=== PATIENT | female | born 1985 | race Caucasian/White ===

== ENCOUNTER 2016-09-22 17:13 | Emergency (ER) | payer MEDICARE, MEDICAID ==
[~2016-09-22] VITALS: Ht 152.4 cm; Wt 92.7 kg
[~2016-09-22 17:13] MED LIST: ALBU8.5H4 IH; ASCO100T11 PO; CHOL100045 PO; DICY10CA13 PO; GABA-500 PO; IMI100 PO; LEVO50TA39 PO; LIOT25TA4 PO; LORA1TAB PO; METO50TA3 PO; OMEP40CA36 PO; ONDA4TAB12 PO; OXYC1TAB24 PO; PRAM0.5T3 PO; RANI300C PO; SERT100T9 PO; TOPI-31 PO; VIT1TABL83 PO
[2016-09-22 17:20] VITALS: BP 115/86; PULSE 86; RESP 14; O2SAT 99
[2016-09-22 19:10] LABS: BASOPHILS % (AUTO) 0.1 % (0-3); EOSINOPHILS % (AUTO) 1.5 % (0-5); Mean Corpuscular Volume 85.7 fL (81-100); NEUTROPHILS % (AUTO) 68.9 % (40-74); Platelet Count 180 bil/L (150-400)
[2016-09-22 19:56] VITALS: BP 100/72; PULSE 85; RESP 16; O2SAT 97
--- NOTE | 2016-09-22 21:24 | ED.REPORT ---
HPI-Psychiatric Illness Date of Service Sep 22, 2016 ED Provider: Monique Najera MD 31-year-old female with past medical history of Asperger's presents to ED in care of mother secondary to SI with plan. Patient states she has been feeling depressed and guilty for quite some time secondary to a multitude of causes including sexual orientation, adult seemed television shows (game of Crohn's), cursing. Patient is concerned that her mother who is quite latter-day will be very disapproving of these behaviors. This has caused her to feel guilt and shame culminating tonight in a desire to harm herself after watching the news with depressing events. Patient's plan is to take a knife and cut herself she did not specify where. Patient denies alcohol or drug use (U-tox positive for methamphetamine). Patient has no complaints of pain with the exception of chronic abdominal pain secondary to multiple abdominal surgeries. Nursing Notes Stated Complaint: SUICIDAL IDEATION Chief Complaint: Psychiatric Complaint Nursing Notes Reviewed: Yes Allergies: Coded Allergies: Aminoglycosides (Verified Allergy, Severe, BURNING SKIN, 09/22/16) Replaces BACITRACIN/NE Haloperidol Lactate (Verified Allergy, Severe, 09/22/16) Uncontrolled movements, "disconnected from body" bupropion (Verified Allergy, Severe, Agitation, 09/22/16) haloperidol (Verified Allergy, Severe, 09/22/16) Uncontrolled movements, "disconnected from body" metoclopramide HCl (Verified Allergy, Severe, 09/22/16) Shakes adhesive tape (Verified Allergy, Unknown, UNKNOWN, 09/22/16) methylprednisolone (Verified Allergy, Unknown, TROTTER SKIN, 09/22/16) neomycin (Verified Allergy, Unknown, MAKES HEALING WORSE, 09/22/16) Penicillins (Verified Adverse Reaction, Severe, Nausea,Vomiting,Diarrhea, 09/22/16) Potassium Clavulanate (Verified Adverse Reaction, Severe, PROJECTILE VOMITING, 09/22/16) amoxicillin trihydrate (Verified Adverse Reaction, Severe, PROJECTILE VOMITING, 09/22/16) Uncoded Allergies: PERTUSSIS (Allergy, Unknown, 10/17/14) Scheduled Ascorbic Acid (Vitamin C) 100 Mg Tablet 100 MG PO DAILY Cholecalciferol (Vitamin D3) (Vitamin D) 1,000 Unit Capsule 1,000 UNIT PO DAILY Gabapentin (Gabapentin) 100 Mg Capsule 300 MG PO DAILY Levothyroxine (Levoxyl) 50 Mcg Tablet 50 MCG PO DAILY Liothyronine Sodium (Cytomel) 25 Mcg Tablet 12.5 MCG PO DAILY Metoprolol Tartrate (Metoprolol Tartrate) 50 Mg Tablet 50 MG PO BID Omeprazole (Omeprazole) 40 Mg Capsule.dr 40 MG PO DAILY Ondansetron ODT (Ondansetron ODT) 4 Mg Tab.rapdis 4 MG PO Q8 Pramipexole Dihydrochloride (Mirapex) 0.5 Mg Tablet 0.5 MG PO 2-3 HR BEFORE SLEEP Ranitidine (Ranitidine) 300 Mg Capsule 300 MG PO DAILY Sertraline HCl (Sertraline) 100 Mg Tablet 200 MG PO DAILY Topiramate (Topiramate) 100 Mg Tablet 50 MG PO BID Vit B Comp/C/FA/Iron/Vit E (Vitamin B Complex Tablet) 1 Each Tablet 1 EACH PO DAILY Scheduled PRN Albuterol HFA (Albuterol HFA) 8.5 Gm Hfa.aer.ad 2 PUFF IH Q4 PRN PRN For Shortness of Breath Dicyclomine (Dicyclomine) 10 Mg Capsule 10 MG PO DAILY PRN PRN For GI Cramps Lorazepam (Lorazepam) 1 Mg Tablet 1-2 MG PO Q6H PRN PRN Muscle twitching Sumatriptan (Imitrex) 100 Mg Tablet 100 MG PO PRN migraines RPEAT AFTER 2 HR PRN oxyCODONE-Acetaminophen 5-325 mg (oxyCODONE-Acetaminophen 5-325 mg) 1 Each Tablet 1-2 TAB PO Q6H PRN PRN For Pain General Time Seen by MD: 17:32 Chief Complaint Suicidal ideation Risk-Psychiatric Illness Suicide Risk Stratification Suicide Risk Factors - Adult: : Substance abuse RF Statements: Risk factors reviewed Past Medical History Past Medical History Asthma (exercise-induced) Hx of tuberculosis (treated years ago) GERD - disposed EGD 08/01/2013, biopsy negative, findings of mild antral Gastritis Hiatal hernia Anxiety Depression (history of suicidal ideation and self-mutilation, bipolar, in past) Asperger's syndrome Hypothyroid Autism Anxiety Medication noncompliance Gastroparesis Allergic rhinitis Reports: Cancer, GERD Reports: Depression, Migraines Past Surgical History Benign liver adenoma removal EGD 08/01/2013 with mild antral gastritis cyst removal 3 anal fistulas 9 abscesses knee arthroscopy wrist cyst Reports: Cholecystectomy, Hysterectomy Family History Breast and ovarian cancer Smoking History Never Smoker Social History Alcohol Use: Denies alcohol use Drug Use: Denies drug use Other Social History: Lives with parents, Local resident Ambulatory Status Independent Review of Systems REVIEW OF SYSTEMS Constitutional: Denies Chills, Fever, Weakness Eyes: Denies Blurred Vision, Vision Changes ENT: Denies Dysphagia, Ear Pain, Hoarseness, Nasal Congestion, Nose Discharge, Throat Pain Neck: Denies Mass, Pain, Swelling Cardiovascular: Denies Chest Pain, Edema, Irregular Heart Rate, Palpitations Respiratory: Denies Cough, Shortness of Breath, Wheezing Gastrointestinal: Denies Black tarry stools, Bright red blood in stool, Change in Appetite, Constipation, Diarrhea, Nausea, Vomiting. Endorses chronic abdominal pain and chronic heartburn. Genitourinary: Denies No burning or pain with urination Neurological: Denies Change in LOC, Change in Speech, Confusion, Difficulty Walking, Dizziness, Double Vision, Localized Weakness, Numbness, Seizures, Somnolence, Tremors, Vertigo Psychologic: Endorses Agitation, Anxiety, Depression, Insomnia, Suicidal Thoughts Physical Exam General: Obese female in mild distress, well-developed, well-nourished, emotionally distraught and crying at time of interview. HEENT: Normocephalic, atraumatic. External ears without defect. Pupils equal, round, and reactive to light and accommodation. Anicteric sclerae, moist conjunctivae, and no lid lag. Oropharynx free of erythema and cobble stoning with moist mucosa, edentulous. Neck: Supple with full range of motion. No jugular venous distension. Cardiovascular: Regular rate and rhythm with no murmurs, rubs, or gallops appreciated Pulmonary: Clear to auscultation bilaterally with no crackles, wheezes, or rhonchi. Normal respiratory effort with no use of accessory muscles. Abdomen: Bowel tones present. Multiple surgical scars, well-healed. Soft, nontender to palpation, nondistended. Extremities: No clubbing, cyanosis, edema, or lymphadenopathy appreciated. Skin: Normal temperature, turgor, and texture; no rash, ulcers, or subcutaneous nodules appreciated. Neurological: Cranial nerves grossly intact. Normal muscle strength, tone, and bulk. Reflexes, coordination, and sensory function within normal limits. No known gait impairment. Psychiatric: Distant and depressed mood and affect. Alert and oriented to person, place, and time. Initial Vital Signs Vital Signs (First) Date Time Temp Pulse Resp B/P Pulse Ox O2 Delivery O2 Flow Rate FiO2 09/22/16 17:20 37.2 86 14 115/86 99 Room Air Initial VS: Reviewed Interpretation & Diagnostics Lab Results Interpretation Result Diagram: 09/22/16189909/22/161899 Test 09/22/16 19:00 09/22/16 19:40 09/23/16 06:55 White Blood Count 7.8th/mm3 (3.8-10.1) Red Blood Count 4.77mil/mm3 (3.90-5.20) Hemoglobin 14.3g/dL (12.0-15.6) Hematocrit 40.9% (35.0-46.0) Mean Corpuscular Volume 85.7fL (81-100) Mean Corpuscular Hemoglobin 30.0pg (27.0-35.0) Mean Corpuscular Hemoglobin Concent 35.0% (32.0-37.0) Red Cell Distribution Width 13.3% (12.3-15.4) Platelet Count 180bil/L (150-400) Neutrophils (%) (Auto) 68.9% (40-74) Lymphocytes (%) (Auto) 23.2% (14-46) Monocytes (%) (Auto) 6.0% (4-12) Eosinophils (%) (Auto) 1.5% (0-5) Basophils (%) (Auto) 0.1% (0-3) Sodium Level 137mEq/L (134-144) Potassium Level 4.2mEq/L (3.5-5.2) Chloride Level 104mEq/L (97-108) Carbon Dioxide Level 20mmol/L (18-29) Blood Urea Nitrogen 9mg/dL (6-20) Creatinine 0.63mg/dL (0.57-1.00) Estimat Glomerular Filtration Rate 157mL/min (>59) Glucose Level 92mg/dL (60-99) Calcium Level 9.1mg/dL (8.5-10.1) Total Bilirubin 0.3mg/dL (0.0-1.2) Aspartate Amino Transf (AST/SGOT) 19U/L (0-50) Alanine Aminotransferase (ALT/SGPT) 21U/L (0-32) Alkaline Phosphatase 181U/L (25-150) Total Protein 7.1g/dL (6.4-8.4) Albumin 3.9g/dL (3.4-5.0) Thyroid Stimulating Hormone (TSH) 0.805uIU/mL (0.450-4.500) Hold Urine Received (Received) Urine Opiates Screen Negative Urine Methadone Screen Negative Urine Barbiturates Screen Negative Urine Amphetamines Screen Positive Urine Benzodiazepines Screen Negative Urine Cocaine Metabolite Screen Negative Urine Cannabinoids Screen Negative Re-Eval/Medical Decision Med Decision/Clinical Course Assumed care at midnight from Dr. Sanders. Patient quiet overnight. Lab evaluation of our urine tox screen showing amphetamine and methamphetamine shows no methamphetamine and no amphetamine. Repeat this morning of a bedside tox again shows positive benzos which was prescribed here, but methamphetamine, oxycodone, and phencyclidine. A lab verification of that tox screen is now pending. She denies using methamphetamine and does not appear to be a methamphetamine user. Plan at this point to summon consultative help via the DCR, as she has no methamphetamine by the actual lab determination, and in any case has had sufficient time to metabolize off any intoxicants. Signed out at [address] Najera On-call social service director states patient will have to remain in ED overnight until can be evaluated in the a.m. secondary to work overload. Patient is a voluntary admit overnight. During interview patient did deny drug or alcohol use, U tox was positive for methamphetamine. Social work states if during the evening after patient has sobered from the methamphetamine ingestion she no longer feels suicidal ideations she may be discharged to home attributing the SI to methamphetamine use. Pt reevaluated at approximately 2300 and still expressed SI with intent. CMP unremarkable (mildly elevated alkaline phosphatase), CMP unremarkable. Pt care transferred to [facility] ED physician Dr. Parada at [id number] Re-Evaluation/Progress : Time of Eval: 08:31 Re-Evaluation/Progress Note: Dr Najera Care assumed Urine tox screens with confusing and inconsistent picture. 3/4 screens do show amphetamine. One shows oxycodone. One with PCP. Will wait for TEXTILE ENGINEER eval to help with dispo later this am Discharge & Departure Shift Change Sign-Out Patient Care Transferred: Yes Laboratory Evaluation: Lab evaluation discussed Response to Therapy: Improved Impression: Primary Impression: Depression Additional Impression: Acute situational disturbance )( Condition at Discharge: No suicidal ideation (contracts for safety if able to get apt with [facility] provider tomorrow) Disposition: Home Additional Instructions: You have an appointment at 9 AM tomorrow at [facility]. Your mom has agreed to help you stay safe over the evening I hope you feel better in the next few days Referrals: Leonid Vogel MD (PCP) Attending Statement I saw the patient with resident Dr. Anaya and agree with plan as above. In brief, patient is a history of Asperger's presenting complaining of wanting to hurt herself with pills are without knife. She denies she may do this. Chest positive for methamphetamines in her urine. She will need to be evaluated by mental health in the morning. Signed out to Dr. Brain Parada. DUNG ANAYA DO Sep 22, 2016 18:23 Paolo Sanders MD Sep 23, 2016 00:23 Dalton Parada MD Sep 23, 2016 06:28 Monique Najera MD Sep 23, 2016 08:33
[2016-09-22 22:51] VITALS: BP 97/64; PULSE 80; RESP 14; O2SAT 98
[2016-09-23] MEDS ORDERED: LORazepam 1 mg Tablet PO ONE (00:15)
[2016-09-23 06:12] VITALS: BP 106/87; PULSE 102; RESP 14; O2SAT 97
[2016-09-23 12:11] VITALS: BP 94/64; PULSE 108; O2SAT 95
--- NOTE | 2016-09-23 14:33 | NUR ---
Mental Health Evaluation Trista Bertrand 09/23/2016 Reason for Hospital Visit: Suicidal Ideation Precipitating Problem:The Pt presented to the ED in accompany of her mother, SW met with the Pt at bedside for mental health evaluation. The Pt stated that she has felt depressed "all my life" and has been feeling progressively worse during the last month with a peak 2-3 days ago. No specific trigger could be identified in relation to the 2-3 day timeframe. The Pt reported that she began feeling suicidal yesterday afternoon for the first time after watching the news. She stated that she has multiple concerns in her life due to medical issues, stress, and her current living situation. According to the Pt's mother, the Pt was diagnosed with Asperger's as a child and has lived on her own since she was about 20, although her mother and aunt have taken on roles for daily care assistance. The Pt stated that she feels guilt and pressure from family over how she lives, which includes her movie selection and sexual orientation (which is unknown to her family). She also reported that she has bad images and thoughts that continuously run through her head, such as those related to her being a bad person and being worse than a murderer. The Pt stated that her sleep and appetite has gotten worse over the last month and that she has lost about 6-7 pounds during this time. She reports that she feels herself feeling isolated and withdrawn and has no will to get out of bed. Mental Status: The Pt is a 63 y/o female. The Pt is A/O x3. During the interview, the Pt was cooperative and appropriate but tearful at times. She was dressed in her hospital gown and was unkempt in appearance. Pt made appropriate eye contact and her speech was normal in rate, volume, and tone. The Pt's affect was congruent and her mood was depressed. She denies current SI, HI or AV H at this time. Psychiatric Hx: [place] MIS check completed. FLORINDA reported that the Pt has been enrolled in [facility] counseling services since April 2015. FLORINDA also reported that the Pt was seen by a [facility] in 2004, outpatient mental health services were recommended. STANTONHussein has no record of previous hospitalizations. The Pt's current counselor at [facility] is Shane and she sees Ester for medication services. She is currently prescribed Pristiq for depression and Lorazepam for sleep concerns. The Pt reported a family history of depression and with no family history of completed suicides. She reports that this is the first time she has experienced SI with the exception of a past experience which was reported by the Pt to be associated with a medication side effect. CD Hx: None reported, although BAL was 0 and UTOX was positive for methamphetamines and phencyclidine. Legal Hx: None reported. Diagnosis: F33.2 Major Depressive Disorder, recurrent, severe Disposition/Plan: The Pt is not currently endorsing SI, HI or AV H. She is not an imminent risk to herself or others nor is gravely disabled by her mental health concerns at this time. The Pt is currently enrolled with counseling and psychiatric services at [facility]. She is seeking urgent services to address her suicidal ideation concerns. SW conferred with ED MD and GEAR HOBBER OPERATORLaura Gerber and the decision was made to discharge the Pt home today in the care of her mother with an urgent next day appointment at [facility]. Pt feels safe to return home and agrees to return to the ED if she feels unable to remain safe. SAIMA Corral Member [employer] SAIMA Joshi, AAC
[2016-12-11] MEDS ORDERED: MULT-1018 PO (08:55)
[2016-12-11] MEDS ORDERED: LORA0.5T PO (08:55)
[2016-12-11] MEDS ORDERED: DESV50TA PO (08:55)
[2016-12-11] MEDS ORDERED: OXYC1TAB24 PO (08:55)
[2016-12-11] MEDS ORDERED: TOPI50TA88 PO (08:55)
[2016-12-11] MEDS ORDERED: ALBU8.5H2 INHALATION (08:55)
== END 2016-09-23 12:20 | disposition home or self-care (01) ==
LOC: SED 17:13
DX: F43.21 Adjustment disorder with depressed mood (principal); K21.9 Gastro-esophageal reflux disease without esophagitis; F84.5 Asperger's syndrome; F84.0 Autistic disorder; J45.990 Exercise induced bronchospasm; Z79.51 Long term (current) use of inhaled steroids; Z79.01 Long term (current) use of anticoagulants; Z79.899 Other long term (current) drug therapy; Z88.0 Allergy status to penicillin; Z88.1 Allergy status to other antibiotic agents
CPT/HCPCS: 36415; 80053; 81002; 81025; 82075; 84443; 85025; 99285; G0480

== ENCOUNTER 2016-09-25 17:29 | Inpatient (IN) | payer MEDICARE, MEDICAID ==
[~2016-09-25] VITALS: Ht 152.4 cm; Wt 90.0 kg
[2016-09-25 17:31] VITALS: BP 115/90; PULSE 92; RESP 16; O2SAT 98
--- NOTE | 2016-09-25 19:14 | ED.REPORT ---
HPI-Psychiatric Illness Date of Service Sep 25, 2016 ED Provider: Darryl Kumar MD Pt is a 31 y.o. female with an extensive medical hx including Asperger's, anxiety, depression, bipolar disorder, and thyroid disease who presents to the ED c/o suicidal ideation. Pt was seen in the ED several days ago for SI and she was to follow-up with a counselor. Pt reports follow-up but states that her SI has been getting worse over the past 3 days. PT is currently looking for admission for her SI.Pt reports currently complying with her Pristiq and Lorazepam, she has hx of non-compliance. Nursing Notes Stated Complaint: SUICIDAL Chief Complaint: Psychiatric Complaint Nursing Notes Reviewed: Yes Allergies: Coded Allergies: Aminoglycosides (Verified Allergy, Severe, BURNING SKIN, 09/22/16) Replaces BACITRACIN/NE Haloperidol Lactate (Verified Allergy, Severe, 09/22/16) Uncontrolled movements, "disconnected from body" bupropion (Verified Allergy, Severe, Agitation, 09/22/16) haloperidol (Verified Allergy, Severe, 09/22/16) Uncontrolled movements, "disconnected from body" metoclopramide HCl (Verified Allergy, Severe, 09/22/16) Shakes adhesive tape (Verified Allergy, Unknown, UNKNOWN, 09/22/16) methylprednisolone (Verified Allergy, Unknown, TROTTER SKIN, 09/22/16) neomycin (Verified Allergy, Unknown, MAKES HEALING WORSE, 09/22/16) Penicillins (Verified Adverse Reaction, Severe, Nausea,Vomiting,Diarrhea, 09/22/16) Potassium Clavulanate (Verified Adverse Reaction, Severe, PROJECTILE VOMITING, 09/22/16) amoxicillin trihydrate (Verified Adverse Reaction, Severe, PROJECTILE VOMITING, 09/22/16) Uncoded Allergies: PERTUSSIS (Allergy, Unknown, 10/17/14) Scheduled Ascorbic Acid (Vitamin C) 100 Mg Tablet 100 MG PO DAILY Cholecalciferol (Vitamin D3) (Vitamin D) 1,000 Unit Capsule 1,000 UNIT PO DAILY Gabapentin (Gabapentin) 100 Mg Capsule 300 MG PO DAILY Levothyroxine (Levoxyl) 50 Mcg Tablet 50 MCG PO DAILY Liothyronine Sodium (Cytomel) 25 Mcg Tablet 12.5 MCG PO DAILY Metoprolol Tartrate (Metoprolol Tartrate) 50 Mg Tablet 50 MG PO BID Omeprazole (Omeprazole) 40 Mg Capsule.dr 40 MG PO DAILY Ondansetron ODT (Ondansetron ODT) 4 Mg Tab.rapdis 4 MG PO Q8 Pramipexole Dihydrochloride (Mirapex) 0.5 Mg Tablet 0.5 MG PO 2-3 HR BEFORE SLEEP Ranitidine (Ranitidine) 300 Mg Capsule 300 MG PO DAILY Sertraline HCl (Sertraline) 100 Mg Tablet 200 MG PO DAILY Topiramate (Topiramate) 100 Mg Tablet 50 MG PO BID Vit B Comp/C/FA/Iron/Vit E (Vitamin B Complex Tablet) 1 Each Tablet 1 EACH PO DAILY Scheduled PRN Albuterol HFA (Albuterol HFA) 8.5 Gm Hfa.aer.ad 2 PUFF IH Q4 PRN PRN For Shortness of Breath Dicyclomine (Dicyclomine) 10 Mg Capsule 10 MG PO DAILY PRN PRN For GI Cramps Lorazepam (Lorazepam) 1 Mg Tablet 1-2 MG PO Q6H PRN PRN Muscle twitching Sumatriptan (Imitrex) 100 Mg Tablet 100 MG PO PRN migraines RPEAT AFTER 2 HR PRN oxyCODONE-Acetaminophen 5-325 mg (oxyCODONE-Acetaminophen 5-325 mg) 1 Each Tablet 1-2 TAB PO Q6H PRN PRN For Pain General Time Seen by MD: 19:13 Chief Complaint Suicidal ideation Hx Obtained From: Patient Arrived By: Walk-in Onset Occurred: 3 days ago Progression Since Onset: Gradually worsening Severity: Current: No pain currently Recent Healthcare: Recent doctor visit Risk-Psychiatric Illness Suicide Risk Stratification RF Statements: Risk factors reviewed Past Medical History Past Medical History Asthma (exercise-induced) Hx of tuberculosis (treated years ago) GERD - disposed EGD 08/01/2013, biopsy negative, findings of mild antral Gastritis Hiatal hernia Anxiety Depression (history of suicidal ideation and self-mutilation, bipolar, in past) Asperger's syndrome Hypothyroid Autism Anxiety Medication noncompliance Gastroparesis Allergic rhinitis Reports: Cancer, GERD Reports: Depression, Migraines Past Surgical History Benign liver adenoma removal EGD 08/01/2013 with mild antral gastritis cyst removal 3 anal fistulas 9 abscesses knee arthroscopy wrist cyst Reports: Cholecystectomy, Hysterectomy Family History Breast and ovarian cancer Smoking History Never Smoker Social History Alcohol Use: Denies alcohol use Drug Use: Denies drug use Other Social History: Lives with parents, Local resident Ambulatory Status Independent Review of Systems Psychiatric: Reports: Suicidal ideation Complete sys rev & neg: except as marked. Physical Exam Initial Vital Signs Vital Signs (First) Date Time Temp Pulse Resp B/P Pulse Ox O2 Delivery O2 Flow Rate FiO2 09/25/16 17:31 36.9 92 16 115/90 98 Room Air Initial VS: Reviewed Respiratory: Breath sounds normal, No respiratory distress Cardiovascular: Regular rate & rhythm, Intact distal pulses Extremities: Vascular intact, Neuro intact Skin: Warm, Dry, No cyanosis General/Constitutional: Awake, Alert Behavior: Positive: Tearful Not responding to external stimuli Neurologic: Oriented X3, Speech NL Psychiatric: Not homicidal Abnormal Mood/Affect: Positive: Flat affect Abnormal Thinking / Perception: Positive: Suicidal, no plan Head / Eyes: Atraumatic, Normocephalic Head / Scalp Abnl: Negative: Scalp deformity present ENT: Atraumatic, Airway patent Mouth: Positive: Mucous membranes dry Abdomen: Atraumatic, Soft, No distention Well healed abdominal surgical scar Interpretation & Diagnostics Lab Results Interpretation Result Diagram: 09/25/16203409/25/162034 Test 09/25/16 19:19 09/25/16 20:35 Hold Urine Received (Received) White Blood Count 8.0th/mm3 (3.8-10.1) Red Blood Count 4.62mil/mm3 (3.90-5.20) Hemoglobin 13.8g/dL (12.0-15.6) Hematocrit 39.6% (35.0-46.0) Mean Corpuscular Volume 85.7fL (81-100) Mean Corpuscular Hemoglobin 29.9pg (27.0-35.0) Mean Corpuscular Hemoglobin Concent 34.8% (32.0-37.0) Red Cell Distribution Width 13.4% (12.3-15.4) Platelet Count 185bil/L (150-400) Neutrophils (%) (Auto) 65.1% (40-74) Lymphocytes (%) (Auto) 25.7% (14-46) Monocytes (%) (Auto) 7.5% (4-12) Eosinophils (%) (Auto) 1.3% (0-5) Basophils (%) (Auto) 0.3% (0-3) Sodium Level 140mEq/L (134-144) Potassium Level 3.9mEq/L (3.5-5.2) Chloride Level 104mEq/L (97-108) Carbon Dioxide Level 21mmol/L (18-29) Blood Urea Nitrogen 9mg/dL (6-20) Creatinine 0.74mg/dL (0.57-1.00) Estimat Glomerular Filtration Rate 130mL/min (>59) Glucose Level 92mg/dL (60-99) Calcium Level 9.0mg/dL (8.5-10.1) Total Bilirubin 0.3mg/dL (0.0-1.2) Aspartate Amino Transf (AST/SGOT) 20U/L (0-50) Alanine Aminotransferase (ALT/SGPT) 23U/L (0-32) Alkaline Phosphatase 176U/L (25-150) Total Protein 7.0g/dL (6.4-8.4) Albumin 4.0g/dL (3.4-5.0) Thyroid Stimulating Hormone (TSH) 0.620uIU/mL (0.450-4.500) Hold Swayer Top Tube Received (Received) Re-Eval/Medical Decision Med Decision/Clinical Course Pt is a 31 y.o. female with an extensive medical hx including Asperger's, anxiety, depression, bipolar disorder, and thyroid disease who presents to the ED c/o suicidal ideation. The patient is afebrile and hemodynamically stable. There is no evidence of head trauma. CBC, CMP and TSH are within normal limits. Blood alcohol is negative, urine drug screen is negative. Patient reports multiple social stressors and isolation leading to depression and suicidal ideation. She requests voluntary admission. I see no evidence of an organic cause of her symptoms. The patient was seen and evaluated by social contact worker who felt that she was appropriate for voluntary admission. Patient was discussed with the admitting psychiatrist accepted for further management. Patient was transferred stable condition. Source of Hx: Old records Counseled Regarding: Need for admission Discharge & Departure Impression: Primary Impression: Suicidal ideation Additional Impressions: Depression Depression Type: unspecified Qualified Code: F32.9 - Major depressive disorder, single episode, unspecified History of thyroid disease Disposition: ADMITTED TO HOSPITAL Discharge Condition All VS Reviewed: Yes Condition: Stable Referrals: Leonid Vogel MD (PCP) Scribe Attestation Portions of this note were transcribed by Duy Shafer. I, Dr. Kumar personally performed the history, physical exam and medical decision-making; I reviewed and confirmed the accuracy of the information in the transcribed note. Signed by: Connie Mckeon, 09/25/2016 and 2203. copies to: Leonid Vogel MD, Beck O MD Sep 25, 2016 19:14 DUY SHAFER Sep 25, 2016 20:12
[2016-09-25 20:51] LABS: BASOPHILS % (AUTO) 0.3 % (0-3); EOSINOPHILS % (AUTO) 1.3 % (0-5); MONOCYTES % (AUTO) 7.5 % (4-12); Mean Corpuscular Hemoglobin 29.9 pg (27.0-35.0); Mean Corpuscular Volume 85.7 fL (81-100); NEUTROPHILS % (AUTO) 65.1 % (40-74); Platelet Count 185 bil/L (150-400)
[2016-09-25] MEDS ORDERED: Alum-Mag Hydrox-Simeth 30 mL Suspension PO PRN (23:00)
[2016-09-25] MEDS ORDERED: Albuterol HFA 60 Puff 8 Gm Inhaler INHALATION PRN (23:00)
[2016-09-25] MEDS ORDERED: Benzocaine-Menthol Lozenge 2/Pkg PO PRN (23:00)
[2016-09-25] MEDS ORDERED: Magnesium Hydroxide 10 mL Oral Concentration PO PRN (23:00)
[2016-09-26] MEDS: LORazepam 1 mg Tablet PO PRN ×2 (00:08→21:33)
--- NOTE | 2016-09-26 01:52 | NUR ---
Admission note- Patient arrived on unit at 2130 this shift. 31 year old female, voluntary patient with history of ASD and depression. Presented in ED with continued SI. States, "It's gotten worse". Patient states family member's declining health is a stressor for her. Patient states she worries about her caregivers' declining health and worries for who will care for her in their absence, as she doesn't "even drive" herself. Previous admit 09/23/15. Isolating, poor sleep, reports losing over 10 pounds recently. Reports tried outpatient management without success. No history previous suicide attempts; no access to firearms, homicidal ideations or perceptual disturbances. Addendum: 09/26/16 at 0456 by IDANIA SPARROW RN ARRIVAL TIME- CORRECTION TIME FOR ADMIT 0135 not 0130
--- NOTE | 2016-09-26 04:57 | NUR ---
sleep pt has not slept since arriving at 0135, Ambien given at 0350. Pt has been up walking to milieu and then room drinking coffee.
--- NOTE | 2016-09-26 06:39 | NUR ---
Pt arrived at 2130. Signed papers with no problems. Presented as tearful and anxious. Did not stay out on unit went right to room. Asleep at 2300. Pt observed every 15 minutes as ordered.
[2016-09-26] MEDS ORDERED: RANI300T4 (06:59)
[2016-09-26] MEDS ORDERED: DESV50TA (06:59)
[2016-09-26] MEDS ORDERED: LEVO50TA6 (06:59)
[2016-09-26] MEDS: Pantoprazole 40 mg ER24 Tablet PO SCH (07:46)
[2016-09-26] MEDS ORDERED: Influenza (Adult) Vaccine 0.5 mL Syringe IM ONE (08:30)
--- NOTE | 2016-09-26 10:13 | NUR ---
day shift nursing note-Anxiety/Depression/SI/Socialization/Nutrition S/O-"I had a lot of anxiety/depression and SI last night." "I am depressed this morning but not anxious or suicidal." Pt. stated she needed her med for RLS last night. She declined her breakfast and wanted to sleep in this morning. She has direct eye contract and is cooperative and pleasant with staff. She denied having any nightmares last night. A-Depressed. Seeking help. P-Monitor for safety per protocol. Assess efficacy of meds to decrease anxiety/depression. Encourage use of better coping skills to deal with anxieties. Keep to regular routine to ensure increased trust.
[2016-09-26] MEDS: LORazepam 0.5 mg Tablet PO SCH (11:57)
[2016-09-26] MEDS ORDERED: oxyCODONE-Acetamin 5-325 mg Tablet PO PRN (13:35)
[2016-09-26] MEDS ORDERED: Albuterol HFA 60 Puff 8 Gm Inhaler INHALATION PRN (13:35)
[2016-09-26] MEDS: ASCORBIC ACID 100 MG PO SCH (13:35)
[2016-09-26] MEDS ORDERED: _LORazepam 1 mg Tablet PO PRN (13:35)
[2016-09-26] MEDS ORDERED: Non-Formulary Medication (Ranitidine 300 MG) PO SCH (13:35)
[2016-09-26 13:38] VITALS: BP 100/64; PULSE 93; RESP 16
[2016-09-26] MEDS ORDERED: Albuterol 2.5 mg/3 mL Inhalation Solution NEB PRN (13:55)
[2016-09-26] MEDS ORDERED: LORazepam 1 mg Tablet PO PRN (14:00)
--- NOTE | 2016-09-26 15:20 | HP ---
[address] [address] HISTORY AND PHYSICAL PATIENT: NATALIE MILLER : 1985 MR#: [id number] ADMIT: 09/25/2016 JOB ID: [id number] IDENTIFICATION OF PATIENT: The patient is a 31-year-old female who reportedly was admitted on a voluntary basis through the emergency department with evidence of significant increasing suicidal ideation, depression, with a plan of taking an overdose of medications. CHIEF COMPLAINT: "I am really worried about my mom and my aunt." This per patient report. HISTORY OF THE PRESENT ILLNESS: The patient is a 31-year-old female who reportedly has a previous history of treatment for depression through [facility] and is currently connected with both a nurse practitioner and therapist at that site. She most recently was seen by Shane, a therapist which was newly assigned, and her previous nurse practitioner, Ester. She reportedly states that she has felt increasingly depressed, hopeless, and worried due to significant factors of her mother's own physical health and her aunt as well. She indicates that her mother is her primary care provider due to the fact that she suffers from Asperger's syndrome and is currently on disability. She indicates that the mother continues to work part-time but is struggling with her own physical limitations. She indicates that her aunt evidently recently had neck surgery and she states that she is very worried that if something happens to either one of them, who would take care of her. She reports that she cannot get things out of her head and that she often puts herself down. She indicates that she hears voices internally telling her that she is a bad person and that she will never live up to what her parents expect of her. In reviewing additional history, as noted above the patient is currently maintained through [facility] and is evidently prescribed agents including Pristiq 50 mg daily, Ativan 1-2 mg q. 6 p.r.n., Zoloft 200 mg daily. She indicated that she is also on multiple supplements as well. Other medical history was reviewed through the ER report and I agree with the findings. PAST PSYCHIATRIC HISTORY: Substantial for the above information. SOCIAL HISTORY: The patient currently lives in an apartment dwelling. She indicates that she does have routine contact with her mother and aunt. She indicates that she does not have current employment. She has very limited access to friends per report. She denies any alcohol or substance abuse issues. Trauma history was not reviewed. FAMILY HISTORY: Unknown. DEVELOPMENTAL HISTORY: She reportedly graduated from high school with a GED from [employer]. No collegiate involvement. MENTAL STATUS EXAMINATION: She was cooperative, polite. She was younger than age in presentation and demeanor. Her speech was of normal tone, frequency, and volume. Her mood was depressed. Her affect is anxious. Her thought process shows no evidence of racing thoughts, flight of ideas, loose or disconnected thinking. Thought content: She denied any evidence of current suicidal, homicidal ideation. No evidence of paranoia. No evidence of hallucinations. She was alert, oriented to time, place, situation. Her attention and concentration intact. 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 Insight and judgment are fair to poor. IMPRESSION: Amonate I: 1. Asperger syndrome. 2. Major depressive disorder, recurrent type, nonpsychotic. 3. Generalized anxiety disorder. Amonate II: Deferred. Amonate III: History of chronic pain. Amonate IV: Stressors are noted for transition of life. Amonate V: Global Assessment of Functioning of current 40. PLAN: 1. Recommendations for continuation of all medications from outpatient sector. No revisions to be made. 2. Recommendations for collaboration of information from [facility] with releases to be signed.
[2016-09-26] MEDS ORDERED: _Ondansetron ODT 4 mg Tablet PO SCH (16:30)
--- NOTE | 2016-09-26 17:05 | NUR ---
Uppers Edge Burnisher./ c.m. S.:"I slept most of the morning... I can't live up to my parents expectations..." O.: met with pt. and doctor for initial interview. Pt. is vol. This is her 2nd psych. hospitalization. She was hospitalized 1st time at age 12 at [facility] in [place]. She is well connected with medical and mental health services. She lives alone but she has daily support from her family. She was depressed all her life. She had multiple surgeries over the last few years. She is unemployed, disabled. She said that her mother was very critical, judgemental and strict all her life. "She is a very forceful person. She yells a lot." Pt. complained about racing thoughts and obsessive negative thoughts. She was upset about not being able to "live up" to her parents expectations. She was trying to avoid activities that would cause her mom disapproval. She was concerned about her mom and her aunt health decline. "What will I do if something happen to them?" She denied SI/HI, denied AH/VH or paranoid/delusional thoughts. She couldn't rate her depression or anxiety. She spent most of the time in her room. A.: pt. is cooperative, quiet, isolative, childlike. P.: monitor behavior, engage pt. in the unit activities; follow care plan.
--- NOTE | 2016-09-26 18:04 | NUR ---
Observations 0700 to 1900 Pt maintained behavioral control throughout the shift. Pt is flat, isolative. Pt isolated in room for entire day until 1700, except fo remerging briefly for lunch. Pt did not seek interaction with peers or staff, but is cooperative when approached. While in room pt lies on bed the entire time, but did not seem to sleep at all. After dinner pt began to quietly sit in TV area. Pt ate no breakfast and 25% of both lunch and dinner. Pt was observed every 15 minutes as ordered.
[2016-09-26 21:40] VITALS: BP 107/68; PULSE 92; RESP 16
--- NOTE | 2016-09-26 21:41 | NUR ---
Nurses PRN Patient received Ativan 1mg for anxiety and sleep,nights to assess response.
--- NOTE | 2016-09-27 05:55 | NUR ---
Pt out on unit some, mostly isolated to room after shower. Asleep at 5. Pt observed every 15 minutes as ordered.
--- NOTE | 2016-09-27 07:00 | NUR ---
Nursing note NOC Patient slept most of shift. Keeps to herself in her room. Pleasant when in milieu.
[2016-09-27] MEDS: Pantoprazole 40 mg ER24 Tablet PO SCH (08:03)
[2016-09-27] MEDS: ASCORBIC ACID 100 MG PO SCH (08:30)
[2016-09-27 08:45] VITALS: BP 100/59; PULSE 83; RESP 16
[2016-09-27] MEDS: LORazepam 0.5 mg Tablet PO SCH (11:47)
--- NOTE | 2016-09-27 13:51 | NUR ---
Nursing Note [id number] Behavior S/O: Pt ate 10% of breakfast & 75% of lunch. Pt politely refused am medications until lunch because they were offered to her 30 minutes after breakfast. She stated, "I have to take them with meals because they cause reflux." Attempted to explain food was still in her stomach & medications could be taken. Pt took medications with her lunch. Blood pressure slightly low at 100/59. Pt has stayed in bed all morning & all afternoon except for meals. Pleasant with staff. Interacts very little with staff & peers. Conversation tracking clear & organized with normal rate & rhythm. Pt d/n attend groups today. A: Pt isolating in room. P: Provide supportive environment. Monitor medications & effects.
--- NOTE | 2016-09-27 14:36 | PROG NOTE ---
[address] [address] PROGRESS NOTE PATIENT: NATALIE MILLER : 1985 MR#: [id number] ADMIT: 09/25/2016 JOB ID: [id number] DATE: 09/27/2016 CHIEF COMPLAINT: "I am doing okay, I heard my mom is coming to visit." This per patient report. HISTORY OF PRESENT ILLNESS: As stated above the patient did identify that she feels that she is in a better place. She indicated that she is hopeful that the visit with her mother will go well. Per staff report, Shira indicated the mother reports that she does have plans of visiting today and is preparing her apartment for return. She reportedly has been cooperative on the unit and has shown no evidence of further significant concern of suicidality. OBJECTIVE: On mental status exam, she was bright, cooperative, interactive. She denies any evidence of acute distress. Her speech is of normal tone, frequency, and volume. Her mood is neutral. Affect was congruent. Her thought process showed no evidence of racing thoughts, flight of ideas, loose or disconnected thinking. Thought content: She denied any evidence of current suicidal, homicidal ideation. No evidence of active hallucinations, delusions. She was alert, oriented to time and place. Attention and concentration intact. 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 Insight and judgment are fair. PHYSICAL EXAMINATION: Vital signs are current. Temperature is unlisted, pulse 92, respirations 16, BP 106/68. MEDICATION REVIEW: Includes doses of Ativan 1 mg q.6 h. p.r.n. for anxiety, levothyroxine 50 mcg daily, Lopressor 50 mg b.i.d., Percocet 1 tablet q.6 h. p.r.n., vitamin D 1000 units, Cytomel 12.5 mcg daily, Zoloft 200 mg daily, metoprolol 50 mg b.i.d., Topamax 50 mg b.i.d. ASSESSMENT: Pevely I: 1. Major depressive disorder, recurrent type, nonpsychotic. 2. Asperger syndrome. Pevely II: Deferred. Pevely III: Long-term history of chronic pain, hypertension. Pevely IV: Stressors are noted for life transitions. Pevely V: Global Assessment of Functioning of current 40. PLAN: 1. Recommendations for continuation of all medications noted. 2. Recommendations for probable discharge tomorrow for continuation of outpatient access of care.
--- NOTE | 2016-09-27 16:30 | NUR ---
Integrated Specialist./ c.m. S.:"I'm ok, kind of depressed..." O.: met with pt. in her room before lunch. She was in bed resting with her eyes open. She "slept better last night than a night before." She denied SI/HI, denied AH/VH or paranoid/delusional thoughts. She rated depression at 3/10 and anxiety at 6/10. She said that she felt "nervous about going back home - there is nothing changed there". She didn't want to talk to her mother over the phone. She knows that she has follow up appts at the beginning of the week with her providers but she didn't remember when. She spent most of the time in her room. Hris Coordinator encouraged pt. to go to the Dining room and to entertain herself. Pt. promised to do that after lunch. A.: pt. is cooperative, isolative, has a flat affect, very passive. P.: monitor behavior, encourage pt. to spend more time outside her room, work on Safety plan and confirm follow up; follow care plan.
--- NOTE | 2016-09-27 18:02 | NUR ---
Observations [id number] Pt was asleep in bed upon start of shift. Pt did not attend Community Meeting, stating that she felt "very tired." Pt remained in bed much of the day, coming out for breakfast and lunch, but she did not attend dinner. Pt appeared depressed and isolative. Pt ate an average of 60% of breakfast and lunch. Pt was friendly with staff and other peers upon interaction. She was observed every 15 minutes of shift as directed.
--- NOTE | 2016-09-27 23:11 | NUR ---
Nurses Note Evening Patient stayed in bed most of the shift. At HS, talked about fears regarding her mothers' health,her own multiple medical problems. She is hopeful that her new antidepressant will work quickly for her.She contracts for safety and will maintain q 15min.checks for safety and support.
--- NOTE | 2016-09-28 05:42 | NUR ---
Observations from [id number] Pts mood and affect were flat and anxious. Pt is still isolative but did attend wrap up group where she said her day started ok but went downhill when she learned she was being discharged tomorrow. She also mentioned she is having some bad thoughts, but said she was able to maintain her safety and would check in with staff if that changed. Pt rated mood 2/10 and continued to present as anxious and tearful throughout the night. Pt had trouble falling asleep but appeared asleep at 0045. Pt has been monitored every 15 minutes as directed.
--- NOTE | 2016-09-28 05:57 | NUR ---
NURSING NOTE NOC Patient slept 4+ hours after receiving new order for Mirapex 0.125 mg hs for c/o Restless Leg Syndrome. Labs show elevated alk phos level. Possible discharge Wednesday with plan for outpatient care. No PRNS
[2016-09-28] MEDS: Pantoprazole 40 mg ER24 Tablet PO SCH (08:16)
[2016-09-28] MEDS: ASCORBIC ACID 100 MG PO SCH (08:18)
[2016-09-28 08:45] VITALS: BP 88/62; PULSE 95; RESP 15
--- NOTE | 2016-09-28 11:32 | PCM.DIMED ---
Discharge Instructions Date of Service Sep 28, 2016 Dates of Hospitalization Sep 25, 2016 at 21:03 Discharge Diagnosis Discharge Diagnosis Aspergers Syndrome Mood DO NOS Diet No restrictions Activity No restrictions Lucas Bo DO Sep 28, 2016 11:32
[2016-09-28] MEDS: LORazepam 0.5 mg Tablet PO SCH (12:25)
--- NOTE | 2016-09-28 15:06 | NUR ---
Nursing Note [id number] Preparations for D/C S/O: Pt has been in room except for meals today. Pt refused breakfast & lunch stating she would eat when she goes home. Pt signed all papers for d/c. Pleasant & cooperative with d/c process. Pt expressed understanding of d/c plan & appointments. Script given for Sertraline as pt stated she didn't have this medication at home. Script wasn't faxed to pharmacy. Pt previously on medication, but was discontinued prior to hospitalization & restarted after admission here. Home medications obtained from pharmacy. Pt has appointment with her CM at 1600. Mother reported to CM that she would be here to pick her up between 1530 & 1545. A: No psychotic sx noted. P: Pt will D/C this afternoon.
--- NOTE | 2016-09-28 15:57 | NUR ---
DC Note Pt left facility with mother 1530, Script sent with Pt to take to pharmacy to fill.
--- NOTE | 2016-09-28 16:10 | NUR ---
Textile Dyer./ c.m. S.:"I'm feeling better today." O.: met with pt. in her room to discuss her discharge plan. She completed Safety plan. She denied SI/HI, denied AH/VH or paranoid/delusional thoughts. She has follow up appt. for therapy today, Sep 28 @ 16:00 with Shane @ [facility] ([phone]). She has follow up appt. for meds with RENY Carl on @ 16:00 at [facility] also ([phone]). Paper Sales Representative spoke with pt.'s mother about pt.'s discharge plan. Pt.'s mother agreed to come and take pt. to her appt. at [facility] today at 16:00. A.: pt. is isolative, cooperative, mother is very supportive. P.: monitor behavior, follow care plan.
--- NOTE | 2016-09-28 18:14 | NUR ---
Pharmacy Out patient pharmacy, [facility], called to question discharge MD's name.
--- NOTE | 2016-09-29 01:10 | DIS ---
[address] [address] DISCHARGE SUMMARY PATIENT: NATALIE MILLER : 1985 MR#: [id number] ADMIT: 09/25/2016 JOB ID: [id number] DIS: 09/28/2016 ADMITTING DIAGNOSES: Include: AXIS I: 1. Asperger's syndrome. 2. Major depressive disorder, recurrent type, nonpsychotic. 3. Generalized anxiety disorder. AXIS II: Deferred. AXIS III: History of chronic pain. AXIS IV: Stressors were noted for transition of life. AXIS V: Global Assessment of Functioning current 40. DISCHARGE DIAGNOSES: Include: AXIS I: 1. Asperger's syndrome. 2. Major depressive disorder, recurrent type, nonpsychotic. 3. Generalized anxiety disorder. 4. Methamphetamine use disorder. AXIS II: Deferred. AXIS III: History of chronic pain. AXIS IV: Stressors are noted for transition of life, substance use. AXIS V: Global Assessment of Functioning current 45. REASON FOR ADMISSION: Patient was a 31-year-old female who reportedly was admitted on a voluntary basis through the emergency department with significant increasing suicidal ideation and depression with a plan of overdose of medications. She readily identified significant worries about her mother and her aunt who were failing with medical presentation. Throughout hospital course, clarification was noted with attainment of emergency department report of positive methamphetamine on urine tox screen. The patient minimized her interactions in the community indicating that she would never use substances. There was questionable reliability and validity. Throughout hospital course, patient maintained on previous medications with re-initiation of Zoloft 200 mg daily and discontinuation of Pristiq. With this, the patient identified that she felt that her anxiety was much better under control, and as a result she felt confident on the day of discharge with discontinuation of Pristiq. Throughout hospital course, patient denied any evidence of further suicidal or homicidal ideation. She participated in both individual and group therapy complements, and agreed to follow up with her outpatient care provider team with noted changes of medication including discontinuation of Pristiq and a return to doses of Zoloft 200 mg daily. DISCHARGE PLANS: Include: 1. Follow up Shane at [facility] in [place] on September 28, 2016, at four o'clock for individual therapy. 2. Follow up with her PCP, RENY Douglas, on October 26 at four o'clock in the afternoon at [facility] in [place]. 3. No medications were given, with recommended continuation of all previous medications in the outpatient sector.
[2016-12-11] MEDS ORDERED: MULT-1018 PO (08:55)
[2016-12-11] MEDS ORDERED: LORA0.5T PO (08:55)
[2016-12-11] MEDS ORDERED: OXYC1TAB24 PO (08:55)
[2016-12-11] MEDS ORDERED: DESV50TA PO (08:55)
[2016-12-11] MEDS ORDERED: TOPI50TA88 PO (08:55)
[2016-12-11] MEDS ORDERED: ALBU8.5H2 INHALATION (08:55)
== END 2016-09-28 15:35 | disposition home or self-care (01) | DRG 885 ==
LOC: SED 17:29 → MHC 21:03
PROVIDERS: ADMIT Psychiatry & Neurology Psychiatry; ATTEND Psychiatry & Neurology Psychiatry
DX: F84.5 Asperger's syndrome (principal); F33.2 Major depressive disorder, recurrent severe without psychotic features; F41.1 Generalized anxiety disorder; G89.29 Other chronic pain; F15.90 Other stimulant use, unspecified, uncomplicated; E03.9 Hypothyroidism, unspecified

== ENCOUNTER 2016-10-28 12:30 | Emergency (ER) | payer MEDICARE, MEDICAID ==
[~2016-10-28] VITALS: Ht 152.4 cm; Wt 88.2 kg
[~2016-10-28 12:30] MED LIST changes: -GABA-500 PO; -PRAM0.5T3 PO; +RANI300T4; -TOPI-31 PO; -VIT1TABL83 PO
[2016-10-28 12:40] VITALS: BP 110/79; PULSE 81; RESP 16; O2SAT 94
[2016-10-28 13:04] LABS: BASOPHILS % (AUTO) 0.1 % (0-3); EOSINOPHILS % (AUTO) 1.7 % (0-5); MONOCYTES % (AUTO) 7.2 % (4-12); Mean Corpuscular Hemoglobin 30.2 pg (27.0-35.0); Mean Corpuscular Volume 87.5 fL (81-100); NEUTROPHILS % (AUTO) 67.7 % (40-74); Platelet Count 178 bil/L (150-400)
[2016-10-28 13:22] LABS: Magnesium 2.1 mg/dL (1.6-2.6)
--- NOTE | 2016-10-28 14:21 | ED.REPORT ---
HPI-Abd Pain F Under 40 Date of Service Oct 28, 2016 ED Provider: Paolo Sanders MD Pt is a 31 y/o female w/ a hx significant for hiatal hernia presenting to the ED c/o gradually increasing upper abdominal pain onset 2 weeks ago, worsening today. The patient had a cholecystectomy and liver tumor removal last year at which point a hernia was discovered and not repaired. She presents today because of increasing pain at the site of the hernia along with increased size of the hernia with associated nausea. Pain is exacerbated with movement or palpation. She denies vomiting, fever, chills, diarrhea, bloody stool. GI: [facility] Nursing Notes Stated Complaint: POSSIBLE HERNIA Chief Complaint: Female Abdominal Pain Nursing Notes Reviewed: Yes Allergies: Coded Allergies: Aminoglycosides (Verified Allergy, Severe, BURNING SKIN, 09/22/16) Replaces BACITRACIN/NE Haloperidol Lactate (Verified Allergy, Severe, 09/22/16) Uncontrolled movements, "disconnected from body" bupropion (Verified Allergy, Severe, Agitation, 09/22/16) haloperidol (Verified Allergy, Severe, 09/22/16) Uncontrolled movements, "disconnected from body" metoclopramide HCl (Verified Allergy, Severe, 09/22/16) Shakes adhesive tape (Verified Allergy, Unknown, UNKNOWN, 09/22/16) methylprednisolone (Verified Allergy, Unknown, TROTTER SKIN, 09/22/16) neomycin (Verified Allergy, Unknown, MAKES HEALING WORSE, 09/22/16) Penicillins (Verified Adverse Reaction, Severe, Nausea,Vomiting,Diarrhea, 09/22/16) Potassium Clavulanate (Verified Adverse Reaction, Severe, PROJECTILE VOMITING, 09/22/16) amoxicillin trihydrate (Verified Adverse Reaction, Severe, PROJECTILE VOMITING, 09/22/16) Uncoded Allergies: PERTUSSIS (Allergy, Unknown, 10/17/14) Scheduled Ascorbic Acid (Vitamin C) 100 Mg Tablet 100 MG PO DAILY Cholecalciferol (Vitamin D3) (Vitamin D) 1,000 Unit Capsule 1,000 UNIT PO DAILY Levothyroxine (Levoxyl) 50 Mcg Tablet 50 MCG PO DAILY Liothyronine Sodium (Cytomel) 25 Mcg Tablet 12.5 MCG PO DAILY Metoprolol Tartrate (Metoprolol Tartrate) 50 Mg Tablet 50 MG PO BID Omeprazole (Omeprazole) 40 Mg Capsule.dr 40 MG PO DAILY Ondansetron ODT (Ondansetron ODT) 4 Mg Tab.rapdis 4 MG PO Q8 Ranitidine (Ranitidine) 300 Mg Capsule 300 MG PO DAILY Sertraline HCl (Sertraline) 100 Mg Tablet 200 MG PO DAILY Scheduled PRN Albuterol HFA (Albuterol HFA) 8.5 Gm Hfa.aer.ad 2 PUFF IH Q4 PRN PRN For Shortness of Breath Dicyclomine (Dicyclomine) 10 Mg Capsule 10 MG PO DAILY PRN PRN For GI Cramps Lorazepam (Lorazepam) 1 Mg Tablet 1-2 MG PO Q6H PRN PRN Muscle twitching Sumatriptan (Imitrex) 100 Mg Tablet 100 MG PO PRN migraines RPEAT AFTER 2 HR PRN oxyCODONE-Acetaminophen 5-325 mg (oxyCODONE-Acetaminophen 5-325 mg) 1 Each Tablet 1-2 TAB PO Q6H PRN PRN For Pain Miscellaneous Medications Ranitidine (Ranitidine) 300 Mg Tablet General Time Seen by MD: 13:33 Chief Complaint Abdominal pain Hx Obtained From: Patient Arrived By: Walk-in Sudden in Onset?: No Onset Occurred: 9 - 12 hours ago Symptom Duration: Since onset Location: : Abdomen upper Quality: Painful Severity: Current: Mild Severity: Maximum: Moderate Similar Sx Previous: Yes Past Medical History Past Medical History Asthma (exercise-induced) Hx of tuberculosis (treated years ago) GERD - disposed EGD 08/01/2013, biopsy negative, findings of mild antral Gastritis Hiatal hernia Anxiety Depression (history of suicidal ideation and self-mutilation, bipolar, in past) Asperger's syndrome Hypothyroid Autism Anxiety Medication noncompliance Gastroparesis Allergic rhinitis Reports: Cancer, GERD Reports: Depression, Migraines Past Surgical History Benign liver adenoma removal EGD 08/01/2013 with mild antral gastritis cyst removal 3 anal fistulas 9 abscesses knee arthroscopy wrist cyst Reports: Cholecystectomy, Hysterectomy Family History Breast and ovarian cancer Smoking History Never Smoker Social History Alcohol Use: Denies alcohol use Drug Use: Denies drug use Other Social History: Lives with parents, Local resident Ambulatory Status Independent Review of Systems Constitutional: Denies: Chills, Fever GI: Reports: Abdominal pain, Nausea, Denies: Bloody/tarry stool, Diarrhea, Vomiting Complete sys rev & neg: except as marked. Physical Exam Initial Vital Signs Vital Signs (First) Date Time Temp Pulse Resp B/P Pulse Ox O2 Delivery O2 Flow Rate FiO2 10/28/16 12:40 36.3 81 16 110/79 94 Room Air Initial VS: Reviewed, Vital signs normal Head / Eyes: Atraumatic, Normocephalic, PERRL ENT: Mucous membranes moist, Conjunctiva normal, No scleral icterus Neck: Supple, Full range of motion Skin: Warm, Dry, No cyanosis Neurologic: Alert, Oriented, Nonfocal Psychiatric: Mood/affect normal, Behavior normal, Normal thought content General/Constitutional: Awake, Alert, No acute distress, Cooperative, Not toxic appearing Respiratory / Chest: Atraumatic, Breath sounds NL, Breath sounds = bilat, No respiratory distress, No rales, No rhonchi, No wheezing, No retractions, No stridor, No chest tenderness, No chest wall deformity, No crepitus Cardiovascular: Heart rate NL, Regular rhythm, Heart sounds NL, No gallop, No murmurs, No rubs, Cap refill not delayed, Peripheral circulation NL Abdomen: Atraumatic, Soft, No guarding, No rebound, No distention Linear incision across mid abdomen. Mildly tender mid-epigastric region. No palpable hernia Back: Full range of motion, Painless range of motion Interpretation & Diagnostics Interpretation & Diagnostics: US abdomen: IMPRESSION: Fat and bowel containing not completely reducible supraumbilical ventral wall hernia redemonstrated similar to prior CT scan. Dictated by: Yuri Turner RR Interpreted: Kalee Ramirez MD on 10/28/2016 at 17:04 Transcribed by: MIKE on 10/28/2016 at 17:07 Lab Results Interpretation Result Diagram: 10/28/16 1255 10/28/16 1255 Test 10/28/16 12:55 10/28/16 17:15 10/28/16 17:40 White Blood Count 7.6th/mm3 (3.8-10.1) Red Blood Count 4.64mil/mm3 (3.90-5.20) Hemoglobin 14.0g/dL (12.0-15.6) Hematocrit 40.6% (35.0-46.0) Mean Corpuscular Volume 87.5fL (81-100) Mean Corpuscular Hemoglobin 30.2pg (27.0-35.0) Mean Corpuscular Hemoglobin Concent 34.5% (32.0-37.0) Red Cell Distribution Width 13.7% (12.3-15.4) Platelet Count 178bil/L (150-400) Neutrophils (%) (Auto) 67.7% (40-74) Lymphocytes (%) (Auto) 23.2% (14-46) Monocytes (%) (Auto) 7.2% (4-12) Eosinophils (%) (Auto) 1.7% (0-5) Basophils (%) (Auto) 0.1% (0-3) Sodium Level 138mEq/L (134-144) Potassium Level 3.9mEq/L (3.5-5.2) Chloride Level 103mEq/L (97-108) Carbon Dioxide Level 21mmol/L (18-29) Blood Urea Nitrogen 10mg/dL (6-20) Creatinine 0.71mg/dL (0.57-1.00) Estimat Glomerular Filtration Rate 137mL/min (>59) Glucose Level 96mg/dL (60-99) Lactic Acid Level 0.7mmol/L (0.4-2.0) Calcium Level 9.0mg/dL (8.5-10.1) Magnesium Level 2.1mg/dL (1.6-2.6) Total Bilirubin 0.2mg/dL (0.0-1.2) Aspartate Amino Transf (AST/SGOT) 19U/L (0-50) Alanine Aminotransferase (ALT/SGPT) 19U/L (0-32) Alkaline Phosphatase 178U/L (25-150) Total Protein 7.1g/dL (6.4-8.4) Albumin 4.1g/dL (3.4-5.0) Lipase 32U/L (13-60) Hold Purple Top Tube Received (Received) Hold Blue Top Tube Received (Received) Hold Halbur Top Tube Received (Received) Hold Sawyer Top Tube Received (Received) Hold Urine Received (Received) CT Abd / Pelvis Interpretation IMPRESSION: 1. Ventral hernia which contains a loop of transverse colon. The herniated colon is unremarkable appearing without evidence of bowel ischemia/strangulation. 2. Hepatic steatosis. 3. No heterogeneous enhancing, hypoattenuating lesions in the right lobe of the liver. Neoplastic process cannot be excluded. Recommend multiphase hepatic CT scan when clinically feasible. Dictated by: Dary Prakash MD, PhD on 10/28/2016 at 18:30 Approved by: Dary Prakash MD, PhD on 10/28/2016 at 18:38 Study type: Abdominal CT IV contrast, Abdom CT oral contrast Interpretation / Wet Read by: Interpret - Radiologist Re-Eval/Medical Decision Med Decision/Clinical Course Med Decision/Clinical Course: 31-year-old female history of Asperger's and multiple abdominal surgeries including cholecystectomy and liver hemangioma removal presenting with incisional hernia pain ventral hernia. Reports nausea for several days worsening pain 2 days. Inflammatory markers normal. She has a ventral hernia which was difficult to reduce initially. Ultrasound showed possible bowel in hernia. CT abdomen pelvis showed transverse colon in the hernia with no evidence of strangulation or incarceration. General surgery Dr. Regalado was consulted and was able to reduce. She recommended patient be discharged home with planned follow-up with her surgeon at [facility] for surgical repair. Return precautions given regarding signs and symptoms of nonreducible, strangulation or incarceration. Re-Evaluation/Progress : Time of Eval: 18:44 Re-Evaluation/Progress Note: Pt rechecked. Dr. Regalado is attempting to reduce the hernia. Consultation : Referral / Consult Name: Amarilis Regalado MD Consulted With: Surgeon Call Returned at: 17:05 Commercial Analyst: Agrees with eval, Agrees with plan Note: Will evaluate the patient in the ED Counseled Regarding: Diagnosis, Lab results, Need for follow-up, When/why to return to ED Discharge & Departure Primary Impression: Ventral incisional hernia Disposition: Home Discharge Condition All VS Reviewed: Yes Condition: Stable Referrals: Leonid Vogel MD (PCP) Girish Deleon MD Attestation Portions of this note were transcribed by Kong Dumont. I, Dr. Sanders personally performed the history, physical exam and medical decision-making; I reviewed and confirmed the accuracy of the information in the transcribed note. Signed by Connie Spencer, 10/28/16 - 1500 copies to: Leonid Vogel MD; Girish Deleon MD, Ben M MD Oct 28, 2016 14:21 KONG DUMONT Oct 28, 2016 14:54
[2016-10-28] MEDS ORDERED: Iohexol 300 mg/mL 30 mL Inj PO ONE (17:05)
--- NOTE | 2016-10-28 17:11 | DRSVH ---
PROCEDURE: US HERNIA ABDOMINAL INDICATIONS: ?incisional hernia pain TECHNIQUE: Real-time focused scanning was performed of the abdomen, with image documentation. COMPARISON: [facility], CT, CT ABD PELVIS W CON, 07/24/2016, 17:59. FINDINGS: Limited examination again demonstrates a midline supraumbilical ventral wall hernia which i s not completely reducible containing bowel and fat. IMPRESSION: Fat and bowel containing not completely reducible supraumbilical ventral wall hernia rede monstrated similar to prior CT scan. Dictated by: Yuri Turner Hussein Interpreted: Kalee Ramirez MD on 10/28/2016 at 17:04 Transcribed by: MIKE on 10/28/2016 at 17:07 Approved by: Kalee Ramirez M.D. on 10/29/2016 at 8:33
[2016-10-28] MEDS ORDERED: Ondansetron 2 mg/mL 2 mL Inj ONE (17:48)
[2016-10-28 18:31] VITALS: BP 123/79; PULSE 87; RESP 14; O2SAT 97
--- NOTE | 2016-10-28 18:40 | DRSVH ---
PROCEDURE: CT ABDOMEN AND PELVIS WITH CONTRAST ([id number]) INDICATIONS: ventral hernia, R/O incarceration TECHNIQUE: After the administration of oral and intravenous contrast, 5 mm thick sections acquired from the diap hragms to the symphysis. 5 mm thick coronal and sagittal reformats were performed. For radiation do se reduction, the following was used: automated exposure control, adjustment of mA and/or kV accordi ng to patient size. COMPARISON: [facility], CT, ABD/PELVIS W/CON (PNL), 09/12/2012, 23:23. [facility], CT, ABD/PELVIS W/CON (PNL), 04/27/2004, 15:15. [facility], CT, CT ABD PELVIS W CO N, 07/24/2016, 17:59. [facility], CR, XR ABD ACUTE SERIES 3VW, 04/01/2016, 4:21. [facility], CT, CT ABD PELVIS W CON, 03/19/2016, 23:45. [facility], MR, MR ABD W&WO CON, 12/09/2015, 11:20. [facility], CT, CT ABD HEPATIC PROTOCOL, 09/27/2015, 17:29. [facility], CT, ABDOMEN W&W/O CONTRAST, 08/25/2013, 9:11. [facility], CT, ABD/PEL VIS W/CON (PNL), 04/12/2013, 2:00. [facility], CT, ABD/PELVIS W/CON (PNL), 05/27/2012, 15: 46. FINDINGS: Image quality: Excellent. ABDOMEN: Lung bases: Lung bases are clear. Heart size is normal. Solid organs: Liver and spleen are normal in size. Heterogeneous enhancing, hypoattenuating lesions noted in the anterior superior and anterior inferior right lobe the liver. Diffuse fatty infiltratio n the liver is noted. Gallbladder is surgically absent. Biliary system is non-dilated. Pancreas enh ances normally. No adrenal nodules. Kidneys are normal in size and enhancement, without hydronephro sis. Peritoneum and bowel: Stomach, small bowel, and colon loops are normal in caliber and wall thickness . Moderate fecal loading noted throughout the colon. No free fluid or air. The appendix is normal. Nodes and vessels: No retroperitoneal or mesenteric adenopathy. Aorta and inferior vena cava are no rmal in caliber. Miscellaneous: Supraumbilical ventral midline hernia which contains a portion of transverse colon is noted. Transverse colon is unremarkable in appearance. PELVIS: Genitourinary: Bladder wall thickness is normal. Miscellaneous: No inguinal hernias or adenopathy. Bones: No suspicious bony lesions. No vertebral body compression fractures. IMPRESSION: 1. Ventral hernia which contains a loop of transverse colon. The herniated colon is unremarkable ap pearing without evidence of bowel ischemia/strangulation. 2. Hepatic steatosis. 3. No heterogeneous enhancing, hypoattenuating lesions in the right lobe of the liver. Neoplastic p rocess cannot be excluded. Recommend multiphase hepatic CT scan when clinically feasible. Dictated by: Dary Prakash MD, PhD on 10/28/2016 at 18:30 Approved by: Dary Prakash MD, PhD on 10/28/2016 at 18:38
[2016-10-28] MEDS ORDERED: 0.9% Sodium Chloride 1,000 ML IV ONE (18:50)
[2016-10-28 19:26] VITALS: BP 124/87; PULSE 81; RESP 16; O2SAT 97
--- NOTE | 2016-10-28 19:56 | CONS ---
[address] [address] CONSULTATION REPORT PATIENT: NATALIE MILLER : 1985 MR#: [id number] ADMIT: 10/28/2016 JOB ID: [id number] DATE OF SERVICE: 10/28/2016 CHIEF COMPLAINT: This is a 31-year-old woman who I am seeing for incisional hernia consultation at the request of Paolo Sanders MD, of the Emergency Department. HISTORY OF PRESENT ILLNESS: This is a 31-year-old woman with a history of hepatic hemangiomas. She underwent an open liver resection with cholecystectomy for this in December [address] Mike Flores, hepatobiliary surgeon, at [facility]. She had difficulty with wound healing postoperatively, as she had a right subcostal incision with a vertical extension and is morbidly obese. It took seven months for her subcutaneous tissues and skin to heal at the midpoint of this incision. She has a history of a known incisional hernia, 5 cm in width, in the upper midline of the abdomen. This was last seen on CT scan when she presented to Urgent Care in July 2016. No intervention was performed. She presented to the emergency department tonight because she was having gradually increasing upper abdominal pain over the past two weeks. She has not had vomiting and she has been having normal bowel movements, although she feels that lately she needs to garcia to the bathroom when she does have a bowel movement. A CT scan was performed which showed a loop of transverse colon within the hernia, but without evidence of obstruction, incarceration, or strangulation. I was consulted to see this patient and I reduced the hernia in the emergency department. PAST MEDICAL HISTORY: Asthma, GERD, history of treated tuberculosis, anxiety/depression, Asperger's syndrome, hypothyroidism, gastroparesis, history of resection of a large hepatic adenoma. PAST SURGICAL HISTORY: Open left lateral sectionectomy with cholecystectomy on December 20, 2015. MEDICATIONS: Reviewed. ALLERGIES: Reviewed. FAMILY HISTORY: Her grandfather had heart disease, prostate cancer, and skin cancer. Her grandmother had breast cancer. SOCIAL HISTORY: She does not smoke. Her mother is present with her today. REVIEW OF SYSTEMS: Review of systems is positive for abdominal pain and nausea, and is otherwise negative except as noted in HPI. PHYSICAL EXAMINATION: Temperature 36.3, heart rate 81, blood pressure 110/79, respiratory rate 16, saturation 94% on room air. General: Awake, alert, no acute distress. Head: Normocephalic. Cardiac: Regular rhythm. Respiratory: Breathing easily on room air. Abdomen: Soft, mild tenderness in the upper abdomen at the junction of the right subcostal incision with vertical midline extension. She has a palpable hernia defect. I reduced it and could feel the fascial defect, 5 cm in size. The remainder of her abdomen is soft, flat, benign, no rebound, guarding, or tenderness. There is no sign of skin change. Extremities: Normal upper extremities bilaterally. Neurologic: No gross deficits. Psychiatric: Normal cognition and judgment. LABORATORY DATA: CBC is within normal limits including a white blood cell count of 7.6. Comprehensive metabolic panel is within normal limits with the exception of alkaline phosphatase 178. IMAGING: Images from CT scan are personally reviewed and reveal a 5 cm incisional hernia in the upper abdomen which contains a loop of transverse colon. This is unremarkable, no sign of ischemia or strangulation. There is no sign of distention or distal decompression to suggest obstruction. Hepatic steatosis was also visualized. There were hypoattenuating lesions in the right lobe of the liver and multiphase hepatic CT scan was recommended. Of note, the patient remarks that she has known lesions on the right side of her liver, which have been under observation by Dr. Flores. ASSESSMENT: A 31-year-old woman with an incisional hernia in the upper abdomen. It was reducible today. No sign of obstruction, strangulation, or incarceration. Normal white blood cell count. RECOMMENDATIONS: I coached the patient today on reduction of her own hernia. I recommend followup with her hepatobiliary surgeon, given the potential future need for additional liver surgery as she does have remaining lesions in her liver, and per her report, these are under surveillance by Dr. Flores. I suspect that hernia repair is in her future, however, the decision to repair it should be made in the context of potential surgical future for her hepatic lesions. She is also welcome to come to my clinic if she has additional questions or concerns.
[2016-12-11] MEDS ORDERED: MULT-1018 PO (08:55)
[2016-12-11] MEDS ORDERED: OXYC1TAB24 PO (08:55)
[2016-12-11] MEDS ORDERED: TOPI50TA88 PO (08:55)
[2016-12-11] MEDS ORDERED: ALBU8.5H2 INHALATION (08:55)
[2016-12-11] MEDS ORDERED: DESV50TA PO (08:55)
[2016-12-11] MEDS ORDERED: LORA0.5T PO (08:55)
== END 2016-10-28 19:27 | disposition home or self-care (01) ==
LOC: SED 12:30
DX: K43.2 Incisional hernia without obstruction or gangrene (principal); R11.0 Nausea; J45.909 Unspecified asthma, uncomplicated; K21.9 Gastro-esophageal reflux disease without esophagitis; F84.0 Autistic disorder; E03.9 Hypothyroidism, unspecified; Z90.49 Acquired absence of other specified parts of digestive tract; Z88.0 Allergy status to penicillin; Z88.1 Allergy status to other antibiotic agents; Z91.048 Other nonmedicinal substance allergy status; Z88.8 Allergy status to other drugs, medicaments and biological substances
CPT/HCPCS: 36415; 74177; 76705; 80053; 81025; 83605; 83690; 83735; 85025; 96361; 96374; 96375; 99285; G0463; J2270; J2405; J7030; Q9967

== ENCOUNTER 2016-11-07 14:16 | Emergency (ER) | payer MEDICARE, MEDICAID ==
[~2016-11-07] VITALS: Ht 152.4 cm; Wt 87.7 kg
[2016-11-07 15:01] VITALS: BP 117/88; PULSE 85; RESP 14; O2SAT 96
--- NOTE | 2016-11-07 16:40 | ED.REPORT ---
HPI-Abd Pain F Under 40 Date of Service Nov 07, 2016 ED Provider: Santosh Jacobs MD A 31 year old female with a history of autism, gastritis, hiatal hernia, gastroparesis, benign liver adenoma removal, cholecystectomy, and hysterectomy among other medical concerns presents to the ED complaining of abdominal pain. The pt was seen on 10/28/2016 when she was diagnosed with a ventral hernia. She followed up with her PCP, who arranged for an appointment with the pt's surgeon in [facility] next week. The pt felt that she could not wait until this appointment due to worsening abdominal pain and increasing size of the hernia. An abdominal binder has not significantly relieved her pain. The pt admits to lack of appetite but denies vomiting or changes in bowel habits. Nursing Notes Stated Complaint: ABDOMINAL PAIN Chief Complaint: Female Abdominal Pain Nursing Notes Reviewed: Yes Allergies: Coded Allergies: Aminoglycosides (Verified Allergy, Severe, BURNING SKIN, 09/22/16) Replaces BACITRACIN/NE Haloperidol Lactate (Verified Allergy, Severe, 09/22/16) Uncontrolled movements, "disconnected from body" bupropion (Verified Allergy, Severe, Agitation, 09/22/16) haloperidol (Verified Allergy, Severe, 09/22/16) Uncontrolled movements, "disconnected from body" metoclopramide HCl (Verified Allergy, Severe, 09/22/16) Shakes adhesive tape (Verified Allergy, Unknown, UNKNOWN, 09/22/16) methylprednisolone (Verified Allergy, Unknown, TROTTER SKIN, 09/22/16) neomycin (Verified Allergy, Unknown, MAKES HEALING WORSE, 09/22/16) Penicillins (Verified Adverse Reaction, Severe, Nausea,Vomiting,Diarrhea, 09/22/16) Potassium Clavulanate (Verified Adverse Reaction, Severe, PROJECTILE VOMITING, 09/22/16) amoxicillin trihydrate (Verified Adverse Reaction, Severe, PROJECTILE VOMITING, 09/22/16) Uncoded Allergies: PERTUSSIS (Allergy, Unknown, 10/17/14) Scheduled Ascorbic Acid (Vitamin C) 100 Mg Tablet 100 MG PO DAILY Cholecalciferol (Vitamin D3) (Vitamin D) 1,000 Unit Capsule 1,000 UNIT PO DAILY Levothyroxine (Levoxyl) 50 Mcg Tablet 50 MCG PO DAILY Liothyronine Sodium (Cytomel) 25 Mcg Tablet 12.5 MCG PO DAILY Metoprolol Tartrate (Metoprolol Tartrate) 50 Mg Tablet 50 MG PO BID Omeprazole (Omeprazole) 40 Mg Capsule.dr 40 MG PO DAILY Ondansetron ODT (Ondansetron ODT) 4 Mg Tab.rapdis 4 MG PO Q8 Ranitidine (Ranitidine) 300 Mg Capsule 300 MG PO DAILY Sertraline HCl (Sertraline) 100 Mg Tablet 200 MG PO DAILY Scheduled PRN Albuterol HFA (Albuterol HFA) 8.5 Gm Hfa.aer.ad 2 PUFF IH Q4 PRN PRN For Shortness of Breath Dicyclomine (Dicyclomine) 10 Mg Capsule 10 MG PO DAILY PRN PRN For GI Cramps Lorazepam (Lorazepam) 1 Mg Tablet 1-2 MG PO Q6H PRN PRN Muscle twitching Sumatriptan (Imitrex) 100 Mg Tablet 100 MG PO PRN migraines RPEAT AFTER 2 HR PRN oxyCODONE-Acetaminophen 5-325 mg (oxyCODONE-Acetaminophen 5-325 mg) 1 Each Tablet 1-2 TAB PO Q6H PRN PRN For Pain Miscellaneous Medications Ranitidine (Ranitidine) 300 Mg Tablet General Time Seen by MD: 16:38 Chief Complaint Abdominal pain Hx Obtained From: Patient, Other family... Arrived By: Walk-in Sudden in Onset?: No Onset Occurred: More than a week ago... Symptom Duration: Since onset Recent Healthcare: Recent doctor visit, Recent hospitalization Similar Sx Previous: Yes Past Medical History Past Medical History Asthma (exercise-induced) Hx of tuberculosis (treated years ago) GERD - disposed EGD 08/01/2013, biopsy negative, findings of mild antral Gastritis Hiatal hernia Anxiety Depression (history of suicidal ideation and self-mutilation, bipolar, in past) Asperger's syndrome Hypothyroid Autism Anxiety Medication noncompliance Gastroparesis Allergic rhinitis Reports: Cancer, GERD Reports: Migraines Past Surgical History Benign liver adenoma removal EGD 08/01/2013 with mild antral gastritis cyst removal 3 anal fistulas 9 abscesses knee arthroscopy wrist cyst Reports: Cholecystectomy, Hysterectomy Family History Breast and ovarian cancer Smoking History Never Smoker Social History Alcohol Use: Denies alcohol use Drug Use: Denies drug use Other Social History: Good social support, Lives with parents, Local resident Ambulatory Status Independent Review of Systems Review of Systems Note: lack of appetite Constitutional: Denies: Fever Respiratory: Denies: Non-productive cough Cardiovascular: Denies: Chest pain GI: Reports: Abdominal pain, Denies: Constipation, Diarrhea, Vomiting Musculoskeletal: Denies: Back pain Complete sys rev & neg: except as marked. Physical Exam Initial Vital Signs Vital Signs (First) Date Time Temp Pulse Resp B/P Pulse Ox O2 Delivery O2 Flow Rate FiO2 11/07/16 15:01 36.4 85 14 117/88 96 Room Air Initial VS: Reviewed General/Constitutional: Awake, Alert Respiratory / Chest: Atraumatic, Breath sounds NL, Breath sounds = bilat, No respiratory distress Cardiovascular: Heart rate NL, Regular rhythm, Heart sounds NL Abdomen: Atraumatic, Soft, BS normoactive well healed chevron scar in middle of abdomen Back: Atraumatic, Full range of motion Head / Eyes: Atraumatic, Normocephalic, PERRL, EOMI ENT: Atraumatic, Airway patent, Mucous membranes moist Skin: Atraumatic, Color NL, No rash, Warm, Dry Neurologic: Oriented X3, Speech NL, No motor deficits, No sensory deficits Neck: Atraumatic, Supple, Full range of motion Upper Extremity / MS: Atraumatic, Full range of motion Lower Extremity / Pelvis / MS: Atraumatic, Full range of motion Psychiatric: Affect NL, Mood NL Interpretation & Diagnostics Interpretation & Diagnostics: Abdomin CT 10/28/2016: IMPRESSION: 1. Ventral hernia which contains a loop of transverse colon. The herniated colon is unremarkable appearing without evidence of bowel ischemia/strangulation. 2. Hepatic steatosis. 3. No heterogeneous enhancing, hypoattenuating lesions in the right lobe of the liver. Neoplastic process cannot be excluded. Recommend multiphase hepatic CT scan when clinically feasible. Dictated by: Dary Prakash MD, PhD on 10/28/2016 at 18:30 Approved by: Dary Prakash MD, PhD on 10/28/2016 at 18:38 Re-Eval/Medical Decision Source of Hx: Old records Counseled Regarding: Diagnosis, Need for follow-up, When/why to return to ED Discharge & Departure Primary Impression: Abdominal pain Abdominal location: generalized Qualified Code: R10.84 - Generalized abdominal pain Disposition: Home Discharge Condition All VS Reviewed: Yes Condition: Stable Patient Instructions: Acute Abdominal Pain (ED) Additional Instructions: You do not have an incarcerated hernia. Follow-up with surgeon next week as planned. Return to the emergency department if you developed high fever, greater than 101 or worsening pain with vomiting and no bowel output. Referrals: Leonid Vogel MD (PCP) Connie Attestation Portions of this note were transcribed by See Walsh. I, Dr. Jacobs personally performed the history, physical exam and medical decision-making; I reviewed and confirmed the accuracy of the information in the transcribed note. Signed by: Connie Gimenez, 11/07/2016 and 17:02. copies to: Leonid Vogel MD, Kirk H MD Nov 07, 2016 16:40 SEE WALSH Nov 07, 2016 17:02
[2016-11-07] MEDS ORDERED: HYDR-4003 PO (17:08)
[2016-11-07 17:20] VITALS: BP 102/78; PULSE 71; RESP 16; O2SAT 97
[2016-12-11] MEDS ORDERED: LORA0.5T PO (08:55)
[2016-12-11] MEDS ORDERED: DESV50TA PO (08:55)
[2016-12-11] MEDS ORDERED: OXYC1TAB24 PO (08:55)
[2016-12-11] MEDS ORDERED: MULT-1018 PO (08:55)
[2016-12-11] MEDS ORDERED: ALBU8.5H2 INHALATION (08:55)
[2016-12-11] MEDS ORDERED: TOPI50TA88 PO (08:55)
== END 2016-11-07 17:20 | disposition home or self-care (01) ==
LOC: SED 14:16
DX: R10.84 Generalized abdominal pain (principal); K43.9 Ventral hernia without obstruction or gangrene; F84.0 Autistic disorder; K29.70 Gastritis, unspecified, without bleeding; K21.9 Gastro-esophageal reflux disease without esophagitis; J45.990 Exercise induced bronchospasm; E03.9 Hypothyroidism, unspecified; Z87.19 Personal history of other diseases of the digestive system; Z86.018 Personal history of other benign neoplasm; Z90.49 Acquired absence of other specified parts of digestive tract; Z90.710 Acquired absence of both cervix and uterus; Z86.69 Personal history of other diseases of the nervous system and sense organs; Z88.1 Allergy status to other antibiotic agents; Z88.8 Allergy status to other drugs, medicaments and biological substances; Z88.0 Allergy status to penicillin

== ENCOUNTER 2016-11-27 17:49 | Emergency (ER) | payer MEDICARE, MEDICAID ==
[~2016-11-27] VITALS: Ht 152.4 cm; Wt 86.8 kg
[~2016-11-27 17:49] MED LIST changes: +HYDR-4003 PO
[2016-11-27 18:00] VITALS: BP 99/76; PULSE 69; RESP 16; O2SAT 96
[2016-11-27] MEDS ORDERED: PRAM0.5T10 PO (18:05)
[2016-11-27 21:26] VITALS: BP 102/66; PULSE 77; RESP 16; O2SAT 94
--- NOTE | 2016-11-27 22:38 | ED.REPORT ---
HPI-Abd Pain F Under 40 Date of Service Nov 27, 2016 ED Provider: Darryl Kumar MD The patient is a 31 year old female with a known abdominal hernia who presents to the emergency department complaining of worsening pain. Her pain has drastically worsened over the last 48 hours. Her pain is not improved with the compression band. She has surgery scheduled on the of this month. She denies fever, chills, nausea, vomiting or diarrhea. Nursing Notes Stated Complaint: POSSIBLE HERNIA Chief Complaint: Female Abdominal Pain Nursing Notes Reviewed: Yes Allergies: Coded Allergies: Aminoglycosides (Verified Allergy, Severe, BURNING SKIN, 11/27/16) Replaces BACITRACIN/NE Haloperidol Lactate (Verified Allergy, Severe, 11/27/16) Uncontrolled movements, "disconnected from body" bupropion (Verified Allergy, Severe, Agitation, 11/27/16) haloperidol (Verified Allergy, Severe, 11/27/16) Uncontrolled movements, "disconnected from body" metoclopramide HCl (Verified Allergy, Severe, 11/27/16) Shakes adhesive tape (Verified Allergy, Unknown, UNKNOWN, 11/27/16) methylprednisolone (Verified Allergy, Unknown, TROTTER SKIN, 11/27/16) neomycin (Verified Allergy, Unknown, MAKES HEALING WORSE, 11/27/16) Penicillins (Verified Adverse Reaction, Severe, Nausea,Vomiting,Diarrhea, 11/27/16) Potassium Clavulanate (Verified Adverse Reaction, Severe, PROJECTILE VOMITING, 11/27/16) amoxicillin trihydrate (Verified Adverse Reaction, Severe, PROJECTILE VOMITING, 11/27/16) Uncoded Allergies: PERTUSSIS (Allergy, Unknown, 10/17/14) Scheduled Ascorbic Acid (Vitamin C) 100 Mg Tablet 100 MG PO DAILY Cholecalciferol (Vitamin D3) (Vitamin D) 1,000 Unit Capsule 1,000 UNIT PO DAILY Levothyroxine (Levoxyl) 50 Mcg Tablet 50 MCG PO DAILY Liothyronine Sodium (Cytomel) 25 Mcg Tablet 12.5 MCG PO DAILY Metoprolol Tartrate (Metoprolol Tartrate) 50 Mg Tablet 50 MG PO BID Omeprazole (Omeprazole) 40 Mg Capsule.dr 40 MG PO DAILY Ondansetron ODT (Ondansetron ODT) 4 Mg Tab.rapdis 4 MG PO Q8 Pramipexole Dihydrochloride (Pramipexole Dihydrochloride) 0.5 Mg Tablet 0.5 MG PO HS Ranitidine (Ranitidine) 300 Mg Capsule 300 MG PO DAILY Sertraline HCl (Sertraline) 100 Mg Tablet 200 MG PO DAILY Scheduled PRN Albuterol HFA (Albuterol HFA) 8.5 Gm Hfa.aer.ad 2 PUFF IH Q4 PRN PRN For Shortness of Breath Dicyclomine (Dicyclomine) 10 Mg Capsule 10 MG PO DAILY PRN PRN For GI Cramps Hydrocodone-Acetaminophen 5-325 mg (Hydrocodone-Acetaminophen 5-325 mg) 1 Each Tablet 1 TABLET PO Q4H PRN PRN For Pain Lorazepam (Lorazepam) 1 Mg Tablet 1-2 MG PO Q6H PRN PRN Muscle twitching Sumatriptan (Imitrex) 100 Mg Tablet 100 MG PO PRN migraines RPEAT AFTER 2 HR PRN General Time Seen by MD: 20:50 Chief Complaint Abdominal pain Hx Obtained From: Patient, Other family... Arrived By: Walk-in Sudden in Onset?: No Onset Occurred: More than a week ago... Symptom Duration: Since onset Progression since Onset: Constant, Gradually worsening Quality: Painful Severity: Current: Moderate Severity: Maximum: Severe Recent Healthcare: No recent hospitalization, Recent doctor visit, Prior workup Similar Sx Previous: Yes Past Medical History Past Medical History Asthma (exercise-induced) Hx of tuberculosis (treated years ago) GERD - disposed EGD 08/01/2013, biopsy negative, findings of mild antral Gastritis Hiatal hernia Anxiety Depression (history of suicidal ideation and self-mutilation, bipolar, in past) Asperger's syndrome Hypothyroid Autism Anxiety Medication noncompliance Gastroparesis Allergic rhinitis Reports: Cancer Reports: Migraines Past Surgical History Benign liver adenoma removal EGD 08/01/2013 with mild antral gastritis cyst removal 3 anal fistulas 9 abscesses knee arthroscopy wrist cyst Reports: Cholecystectomy, Hysterectomy Family History Breast and ovarian cancer Smoking History Never Smoker Social History Alcohol Use: Denies alcohol use Drug Use: Denies drug use Other Social History: Good social support, Lives with parents, Local resident Ambulatory Status Independent Review of Systems Constitutional: Denies: Chills, Fever GI: Reports: Abdominal pain, Denies: Diarrhea, Nausea, Vomiting Complete sys rev & neg: except as marked. Physical Exam Initial Vital Signs Vital Signs (First) Date Time Temp Pulse Resp B/P Pulse Ox O2 Delivery O2 Flow Rate FiO2 11/27/16 18:00 36.3 69 16 99/76 96 11/27/16 21:26 Room Air Initial VS: Reviewed Head / Eyes: Atraumatic, Normocephalic, PERRL ENT: Mucous membranes moist, Conjunctiva normal, No scleral icterus Neck: Supple, Non-tender, Full range of motion Lymphatic: No lymphadenopathy Extremities: Vascular intact, Neuro intact, No swelling, No tenderness Skin: Warm, Dry, No cyanosis Neurologic: Alert, Oriented, Nonfocal Psychiatric: Mood/affect normal, Behavior normal, Normal thought content General/Constitutional: Awake, Alert, Cooperative Respiratory / Chest: Atraumatic, Breath sounds NL, Breath sounds = bilat, No respiratory distress, No rales, No rhonchi, No wheezing Cardiovascular: Heart rate NL, Regular rhythm, Heart sounds NL, No gallop, No murmurs, No rubs, Peripheral circulation NL Abdomen: No guarding, No rebound, BS normoactive, No distention Well healed abdominal scar about the anterior abdominal wall. She has a easily reducible ventral hernia. There is no evidence of incarceration or strangulation. The hernia is most notable when she stands up and is more difficulty to appreciate when she is laying on her back. Back: Inspection NL, Full range of motion, Painless range of motion, No midline vertebral tend Re-Eval/Medical Decision Med Decision/Clinical Course Patient is a 31-year-old female with history of known ventral hernia scheduled for operative management on the of this month who presents to the emergency department because her hernia is becoming larger and occasionally bulges outward, especially when she stands up and is not wearing her abdominal binder. Examination reveals an easily reducible ventral hernia that spontaneously reduces when she lays on her back and bulges outward when standing up without her binder on. There is absolutely no evidence of bowel obstruction, strangulation or incarceration. Patient advised to use her binder and take pain medications that are already been prescribed. She will follow up with her surgeon on the . Signs and symptoms of incarceration and stimulation were reviewed in detail with the patient and her family member. Follow-up and return precautions were provided in detail and she was discharged in good condition. Source of Hx: Old records, Family Re-Evaluation/Progress : Time of Eval: 22:46 Re-Evaluation/Progress Note: Discussed plan for discharge. All questions were addressed. Counseled Regarding: Diagnosis, Lab results, Need for follow-up, When/why to return to ED Discharge & Departure Primary Impression: Ventral hernia Obstruction and gangrene presence: without obstruction or gangrene Qualified Code: K43.9 - Ventral hernia without obstruction or gangrene Additional Impressions: Abdominal pain Abdominal location: unspecified location Qualified Code: R10.9 - Unspecified abdominal pain History of abdominal surgery Disposition: Home Discharge Condition All VS Reviewed: Yes Condition: Stable Additional Instructions: Thank you for seeking care at the emergency room. It is difficult for us to make definitive diagnoses in the ED but we believe that you are experiencing pain due to your known hernia. Our primary goal today in the ED was to evaluate you for any life-threatening conditions. Your evaluation was reassuring. Keep your appointment for your upcoming surgery. Continue your normal pain regimen. You should return to the ED immediately if you develop a bulge in the area that does not go back in, severe persistent pain, fevers, vomiting, or any other concerning signs or symptoms. Thank you for letting us partake in your care today. Referrals: Leonid Vogel MD (PCP) Scribe Attestation Portions of this note were transcribed by Francine Schumacher. I, Dr. Kumar personally performed the history, physical exam and medical decision-making; I reviewed and confirmed the accuracy of the information in the transcribed note. Signed by: Connie Pressley, 11/27/2016 and [id number]. copies to: Leonid Vogel MD, Beck O MD Nov 27, 2016 22:38 Francine Schumacher Nov 27, 2016 22:46
[2016-11-27 22:54] VITALS: BP 102/66; PULSE 77; RESP 16; O2SAT 94
[2016-12-11] MEDS ORDERED: MULT-1018 PO (08:55)
[2016-12-11] MEDS ORDERED: DESV50TA PO (08:55)
[2016-12-11] MEDS ORDERED: ALBU8.5H2 INHALATION (08:55)
[2016-12-11] MEDS ORDERED: OXYC1TAB24 PO (08:55)
[2016-12-11] MEDS ORDERED: TOPI50TA88 PO (08:55)
[2016-12-11] MEDS ORDERED: LORA0.5T PO (08:55)
== END 2016-11-27 22:55 | disposition home or self-care (01) ==
LOC: SED 17:49
DX: K43.9 Ventral hernia without obstruction or gangrene (principal); K21.9 Gastro-esophageal reflux disease without esophagitis; Z90.710 Acquired absence of both cervix and uterus; Z88.0 Allergy status to penicillin; Z88.1 Allergy status to other antibiotic agents; Z88.8 Allergy status to other drugs, medicaments and biological substances; Z85.05 Personal history of malignant neoplasm of liver; Z98.890 Other specified postprocedural states

== ENCOUNTER 2016-12-16 05:47 | Day surgery (SDC) | payer MEDICARE, MEDICAID ==
[2016-12-16] VITALS (13 sets, daily range): BP systolic 99–125; BP diastolic 61–77; PULSE 67–89; RESP 13–18; O2SAT 93–100
[~2016-12-16] VITALS: Ht 152.4 cm; Wt 86.7 kg
[~2016-12-16 05:47] MED LIST changes: +ALBU8.5H2 INHALATION; -ALBU8.5H4 IH; +DESV50TA PO; -HYDR-4003 PO; +LORA0.5T PO; -LORA1TAB PO; +Lactated Ringer's 1,000 ML IV SCH; +MULT-1018 PO; +PRAM0.5T10 PO; -RANI300T4; +TOPI50TA88 PO
[2016-12-16] MEDS ORDERED: Rocuronium 10 mg/mL 5 mL Inj ONE (05:48)
[2016-12-16] MEDS ORDERED: Dexamethasone 4 mg/mL Inj ONE (05:48)
[2016-12-16] MEDS ORDERED: fentaNYL-PF 50 mCg/mL 2 mL Inj ONE (05:48)
[2016-12-16] MEDS ORDERED: Propofol 10,000 mCg/mL 20 mL Inj ONE (05:48)
[2016-12-16] MEDS ORDERED: Neostigmine 1 mg/mL 10 mL Inj ONE (05:48)
[2016-12-16] MEDS ORDERED: Glycopyrrolate 0.2 MG/ML 1mL Inj ONE (05:48)
[2016-12-16] MEDS ORDERED: Ondansetron 2 mg/mL 2 mL Inj ONE (05:48)
[2016-12-16] MEDS ORDERED: MetoCLOpramide 5 mg/mL 2 mL Inj ONE (05:48)
[2016-12-16] MEDS ORDERED: CeFAZolin Inj 2 GM in IV Premix 1 EACH IV ONE (06:00)
[2016-12-16] MEDS ORDERED: Lactated Ringer's 1,000 ML IV ONE ×2 (06:39→11:27)
--- NOTE | 2016-12-16 08:19 | PCM.HPANE ---
Patient Data Surgeon Admitting Provider: Attending Provider:Amarilis Regalado MD Primary Care Physician:Leonid Vogel MD Other Provider: Reason for Visit Incisional Hernia Ht/WT & BMI Height (Feet): 5 Height (Inches): 0.00 Weight (Kilograms): 86.3 Body Mass Index 37.00 Allergies Coded Allergies: Aminoglycosides (Verified Allergy, Severe, BURNING SKIN, 12/11/16) Replaces BACITRACIN/NE haloperidol (Verified Allergy, Severe, 12/11/16) Uncontrolled movements, "disconnected from body" adhesive tape (Verified Allergy, Unknown, UNKNOWN, 12/11/16) methylprednisolone (Verified Allergy, Unknown, TROTTER SKIN, 12/11/16) neomycin (Verified Allergy, Unknown, MAKES HEALING WORSE, 12/11/16) Haloperidol Lactate (Verified Adverse Reaction, Severe, 12/11/16) Uncontrolled movements, "disconnected from body" Penicillins (Verified Adverse Reaction, Severe, Nausea,Vomiting,Diarrhea, 12/11/16) Potassium Clavulanate (Verified Adverse Reaction, Severe, PROJECTILE VOMITING, 12/11/16) amoxicillin trihydrate (Verified Adverse Reaction, Severe, PROJECTILE VOMITING, 12/11/16) bupropion (Verified Adverse Reaction, Severe, Agitation, 12/11/16) metoclopramide HCl (Verified Adverse Reaction, Severe, SHAKES, 12/11/16) Uncoded Allergies: PERTUSSIS (Allergy, Unknown, UNKNOWN, 12/11/16) Past Anesthesia History Anesthesia History: Denies:: Abnormal Airway, Anesthesia Reactions, Difficult Intubation, Fam Anesthesia Reaction, Fam Malignant Hypertherm, Malignant Hyperthermia Diabetes History Hx Diabetes?: No MRSA MRSA: No Medications Home Meds Incl Beta Chalo: Yes (METOPROLOL) Date Beta Chalo Taken: Dec 15, 2016 Time Beta Chalo Taken: 2199 Reported Medications Topiramate 50 Mg [id number] Mg PO BID Ref 0 12/11/16 Lorazepam 0.5 Mg Tablet0.5-1 Mg PO TID PRN For Anxiety Ref 0 12/11/16 Multivitamin (Multi Vitamin Daily)1 Each Tablet1 Each PO DAILY 30 Days Ref 0 12/11/16 Albuterol HFA (Proair HFA)8.5 Gm Hfa.aer.ad2 Puffs INHALATION Q4H PRN PRN #1 INHALER 12/11/16 Pramipexole Dihydrochloride 0.5 Mg Tablet0.5 Mg PO HS #30 11/27/16 Omeprazole 40 Mg Capsule.dr40 Mg PO DAILY Ref 0 03/23/16 Cholecalciferol (Vitamin D3) (Vitamin D)1,000 Unit Capsule1,000 Unit PO DAILY # 1 BOTTLE Ref 0 01/14/15 Sumatriptan (Imitrex)100 Mg [id number] Mg PO PRN migraines RPEAT AFTER 2 HR PRN 01/14/15 Sertraline HCl (Sertraline)100 Mg [id number] Mg PO DAILY 30 Days Ref 0 01/14/15 Ranitidine 300 Mg [id number] Mg PO DAILY 30 Days Ref 0 01/14/15 Ondansetron ODT 4 Mg Tab.rapdis4 Mg PO Q8 PRN PRN 01/14/15 Metoprolol Tartrate 50 Mg Tbyyiv91 Mg PO BID 30 Days Ref 0 01/14/15 Levothyroxine (Levoxyl)50 Mcg Ddqfml76 Mcg PO DAILY 30 Days Ref 0 01/14/15 Dicyclomine 10 Mg Zxrhvam17 Mg PO DAILY PRN For GI Cramps Ref 0 01/14/15 Liothyronine Sodium (Cytomel)25 Mcg Kouzaz52.5 Mcg PO DAILY 01/14/15 Discontinued Reported Medications Desvenlafaxine Succinate ER (Pristiq ER)50 Mg Njrqux03 Mg PO DAILY 12/11/16 oxyCODONE-Acetaminophen 5-325 mg 1 Each Tablet1 Tab PO Q6H PRN For Pain Ref 0 12/11/16 Ascorbic Acid (Vitamin C)100 Mg Bqvxih692 Mg PO DAILY 01/14/15 Albuterol HFA 8.5 Gm Hfa.aer.ad2 Puff IH Q4 PRN For Shortness of Breath #1 INHALER Ref 0 01/14/15 Discontinued Scripts Hydrocodone-Acetaminophen 5-325 mg 1 Each Tablet1 Tablet PO Q4H PRN For Pain # 12 TABLET Prov:Santosh Jacobs MD 11/07/16 Lorazepam 1 Mg Tablet1-2 Mg PO Q6H PRN Muscle twitching #10 TABLET Ref 0 Prov:ASHLEY RAMIRES DO 07/17/16 History History of ENT Problems?: Yes HEENT History: Positive for:: Sinus Problem (ALLERGIC RHINITIS) Denies:: Abnormal Airway Cataracts Difficult Intubation Dysphagia Hearing Problem Hx of Heart Problems?: Yes Cardiovascular History: Positive for:: Chest Pain (ATYPICAL) Heart Murmur (ECHO 09/2007 EF 65%) Hypertension Denies:: AICD Abdominal Aortic Aneurism Atrial Fibrillation Cardiac Surgery Congestive Heart Failure Edema Irregular Heartbeat Pacemaker Thrombophlebitis Valvular Heart Disease Hx of Respiratory Problem?: Yes Respiratory History: Positive for:: Asthma Tuberculosis (HX OF TREATMENT) Use of Inhalers / NEBS Denies:: COPD Chest Surgery Cough Dyspnea Emphysema Hemoptysis Oxygen Administration Pneumonia Use of C-PAP Machine (has done sleep study twice- neg study 12/2013) Hx Neurologic Problems?: Yes Neurological History: Positive for:: Headaches (migraines - comes in waves, sometimes months without one) Seizures (one seizure as a baby) Denies:: Alzheimer's Disease CVA Dementia Dizziness Parkinson's Disease Other Neurological Pertinent: RLS, PLMD Hx of GI Problems?: Yes Gastrointestinal History: Positive for:: Gall Bladder Disease (S/P LAUREN/ LIVER RESECTION FOR ADENOMA W/ POST OP DEHISCENCE) Gastroesphageal Reflux (HX OF ANTRAL GASTRITIS, GASTROPARESIS) Heartburn Hiatal Hernia Liver Disease (HX BENIGN LIVER ADENOMA S/P RESECTION BY DR. QUETA SOLOMON/ [facility]) Rectal Bleeding (S/P ANAL FISTULA RPR X3) Denies:: Cirrhosis Diverticulitis Gastrointestinal Bleeding Hepatitis Other GI Pertinent History: S/P I&D ABCESSES X9 ??SITES C/OF BLOATING, NAUSEA,CONSTIPATION & ABD PAIN INCISIONAL HERNIA=CURRENT PROBLEM Hx of Problems?: No Genitourinary History: Denies:: HX of Hemodialysis Kidney Stones Urinary Tract Infection HX of Peritoneal Dialysis: No Female Hx: Denies:: Currently Endometriosis Pelvic Inflammatory Problems with Breasts? Skin History: Positive for:: History Skin Disorders? (eczema) Denies:: Pressure Ulcers Hx Musculoskeletal Problems?: Yes Musculoskeletal History: Positive for:: Musculoskeletal Trauma (S/P KNEE SCOPE ) Denies:: Back Injury Joint Replacement Systemic Lupus Hx of Psycho/Social Problems?: Yes Psycho Social History: Positive for:: Anxiety Bipolar Disorder Hx Depression Denies:: Suicide Attempt (HX OF SELF-MUTILATION & SUICIDAL IDEATION) Hx Surgeries?: Yes (I&D ABCESSES X9,KNEE SCOPE,HYST,LAUREN/LIVER RESECTION,EXC WRIST CYST,ANAL F) Hx Any Other Health Problems?: Yes Other History: Positive for:: Hospitalization (several) Thyroid Disease (Hypothyroid) Denies:: Cancer Endocrine Disease History Blood Transfusions: Denies:: Blood Transfuse Reaction Blood Transfusions Hx Diabetes: No Hx Alcohol Use: NoHx Substance Use: No Smoking Status: Never Smoker Have You Smoked inLast 12 mo: No Stop/Bang Treated for Sleep Apnea?: No Do You Have a CPAP Machine?: No S-Snoring: Do You Snore Loudly: Yes T-Tired: feel tired, fatigued: Yes O-Obsered: Observed not breath: No P-Blood Pressure: treated: Yes B- Body Mass Index > 35 kg/m2: Yes A- Age over 50: No N- Neck Large Circumference: No G- Gender Male: No ROSINA Total Score: 4 ROSINA Risk Assessment: Low Risk, <3 Yes Risk Assessment Category Category 1A: Patient has history of documented sleep apnea, and HAS NOT received any narcotic, sedative or anesthesia administration during this stay. Category 1B: Patient has history of documented sleep apnea, and HAS received any narcotic , sedative or anesthesia administration during this stay Category 2: Patient has SUSPECTED Obstructive Sleep Apnea, and HAS received any narcotic , sedative or anesthesia administration during this stay. Category 3: Patient has SUSPECTED Obstructive Sleep Apnea and HAS NOT received narcotic, sedative or anesthesia administration during this stay. Category 4: Outpatient in Procedural Areas with known sleep apnea or who screen positive for High Risk via the STOP/BANG questionnaire. Exam Exam Vital Signs Vital Signs Date Time Temp Pulse Resp B/P Pulse Ox O2 Delivery O2 Flow Rate FiO2 12/16/16 06:40 36.4 82 14 103/75 94 Room Air General Appearance: Oriented X3 HEENT/AIRWAY: MP 2 Lungs: Normal Air Movement Heart: Regular Rate/Rhythm Meds/Labs/Diagnostics Admission Meds Current Medications Lactated Ringer's (Lr) 1,000 ml @ ud STK-MED ONCE IV Last administered on 12/16 06:39; Start 12/16/16 at 06:39; Stop 12/16/16 at 06:40; Status DC Metoprolol Tartrate (Lopressor) 25 mg STK-MED ONCE .ROUTE Last administered on 12/16/16 07:45; Start 12/16/16 at 07:38; Stop 12/16/16 at 07:39; Status DC Metoprolol Tartrate (Lopressor) 25 mg STK-MED ONCE .ROUTE Last administered on 12/16/16t 07:46; Start 12/16/16 at 07:43; Stop 12/16/16 at 07:45; Status DC Plan Impression Patient chart reviewed, patient interviewed and anesthestic plan with risks, benefits, and alternatives discussed, and informed consent obtained. NPO Status: 12/15@1400, WATER @ 0400 ASA Physical Status: ASA2 Mod Systemic Disease Anesthetic Plan: GA Bene/Risks/Altern/Consents: Yes HP Complete Prior to Induction: Yes Morales Mon MD Dec 16, 2016 08:19
[2016-12-16] MEDS ORDERED: Lactated Ringer's 1,000 ML IV SCH (09:08)
[2016-12-16] MEDS ORDERED: Lactated Ringer's 500 ML IV PRN (09:08)
[2016-12-16] MEDS ORDERED: MetoCLOpramide 5 mg/mL 2 mL Inj IVPUSH PRN ×2 (09:10→11:45)
[2016-12-16] MEDS ORDERED: EPHEDrine Sulfate 50 mg/mL Inj IVPUSH PRN (09:10)
[2016-12-16] MEDS ORDERED: Labetalol 5 mg/mL 4 mL Inj IV PRN (09:10)
[2016-12-16] MEDS ORDERED: Dexamethasone 4 mg/mL Inj IVPUSH PRN (09:10)
[2016-12-16] MEDS ORDERED: Phenylephrine 10,000 mCg/mL Inj IVPUSH PRN (09:10)
[2016-12-16] MEDS ORDERED: HYDROmorphone 1 mg/mL Inj IVPUSH PRN ×2 (09:10→11:45)
[2016-12-16] MEDS ORDERED: Ondansetron 2 mg/mL 2 mL Inj IVPUSH PRN (09:10)
[2016-12-16] MEDS ORDERED: Bupivacaine 0.5%/EPI 50 mL Inj INFILTRATE ONE (09:51)
[2016-12-16] MEDS ORDERED: Polyethylene Glycol (PEG) 17 Gm Powder PO PRN (11:45)
[2016-12-16] MEDS: fentaNYL-PF 50 mCg/mL 2 mL Inj IVPUSH PRN ×3 (12:10→12:40)
[2016-12-16 12:15] LABS: BASOPHILS % (AUTO) 0.1 % (0-3); EOSINOPHILS % (AUTO) 0.1 % (0-5); MONOCYTES % (AUTO) 1.8 % (4-12); Mean Corpuscular Hemoglobin 29.9 pg (27.0-35.0); Mean Corpuscular Volume 87.6 fL (81-100); NEUTROPHILS % (AUTO) 89.4 % (40-74); Platelet Count 162 bil/L (150-400)
--- NOTE | 2016-12-16 13:05 | NUR ---
Post Op Pt A&Ox3. PORTILLO. Pt able to ambulate FWW SBA to bathroom before transferring to bed. Midline abdominal incision saturated, changed 2x2 and Mepilex. Band aid sites C/D/I, one has minimal brown drainage. 1L O2 via NC. Pain a 5/10 medication given in PACU. Mild nausea, zofran to be given. 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 Care continues.
--- NOTE | 2016-12-16 13:09 | PCM.ANEP2 ---
Post Anesthesia Evaluation ASA/CMS Post Anesthesia VS in Patient's Normal Range?: Yes Resp Stable; Airway Patent?: Yes CV Function & Hydration Stable: Yes Mental Status Recovered?: Yes Pain control Satisfactory?: Yes N/V Control Satisfactory?: Yes Morales Mon MD Dec 16, 2016 13:09
--- NOTE | 2016-12-16 13:09 | PCM.ANEP1 ---
Post Anesthesia Phase 1 PACU Phase 1 Assessment Vital Signs Vital Signs Date Time Temp Pulse Resp B/P Pulse Ox O2 Delivery O2 Flow Rate FiO2 12/16/16 12:40 67 17 111/72 97 Nasal Cannula 2 12/16/16 12:25 72 14 117/77 95 Nasal Cannula 2 12/16/16 12:10 75 15 121/77 93 Room Air 12/16/16 11:55 77 17 125/75 95 Room Air 12/16/16 11:50 74 13 122/73 100 Simple Mask 10 12/16/16 11:45 75 17 112/66 100 Simple Mask 10 12/16/16 11:40 36.6 77 15 114/65 100 Simple Mask 10 12/16/16 06:40 36.4 82 14 103/75 94 Room Air Anesthetic Administered: GA Level of Alertness: Awake, talking Pain: No Nausea or Vomiting: No Oxygen Delivery: Room Air Lungs: Normal Air Movement Morales Mon MD Dec 16, 2016 13:09
[2016-12-16] MEDS: Dextrose 5% Lactated Ringer's 1,000 ML IV SCH ×2 (13:19→13:46)
[2016-12-16] MEDS: Ondansetron 2 mg/mL 2 mL Inj IVPUSH PRN (13:47)
--- NOTE | 2016-12-16 14:32 | OP ---
[address] [address] OPERATIVE REPORT PATIENT: NATALIE MILLER : 1985 MR#: [id number] ADMIT: 12/16/2016 JOB ID: [id number] DATE OF SURGERY: 12/16/2016 PREOPERATIVE DIAGNOSIS(ES): Ventral incarcerated incisional hernia POSTOPERATIVE DIAGNOSIS(ES): Ventral incarcerated incisional hernia PROCEDURE PERFORMED: Laparoscopic repair of incarcerated ventral incisional hernia SURGEON: Amarilis Regalado MD SCAGLIOLA MECHANIC: Augusto Schumacher MD; SHELLIE Dennis; Norah Perez MS-3. HISTORY OF PRESENT ILLNESS: This is a 31-year-old woman who underwent left lateral sectionectomy one year ago at [facility] by Dr. Mike Flores via bilateral subcostal incision with a vertical extension for a large hepatic adenoma. She subsequently had wound dehiscence and infection, and required a wound VAC for several months. Ultimately this healed, but she subsequently developed an incisional hernia at the site with incarcerated transverse colon. This became increasingly painful, and she presented to the emergency department several times with pain and a bulge. At times it was reduced but it would immediately recur and in the weeks leading up to surgery it appeared incarcerated but without sign of strangulation. She underwent a repeat four phase liver CT and evaluation at [facility], and her liver surgeon did not see any imminent indication for hepatic surgery, and therefore the decision was made to proceed with hernia repair. FINDINGS: 1. A 5.5 cm upper abdominal ventral incisional hernia with incarcerated transverse colon. 2. A laparoscopic repair was performed with primary fascial closure and mesh placement with greater than 5 cm of overlap on all sides. DESCRIPTION OF PROCEDURE: The patient was brought to the operating room and placed in supine position. General anesthesia was induced. A warming blanket and SCDs were placed. A Sorensen was placed. Antibiotics were infused. The operative field was prepped and draped in sterile fashion. A pause was performed to confirm the correct patient, procedure, and site. A Veress needle was used in the left upper quadrant to gain access to the abdomen, and an Optiview trocar was placed. Three additional ports were placed in the right mid abdomen, right lower quadrant, and inferior midline. 0.5% Marcaine was infused at all port sites. Extensive adhesiolysis was then performed to reduce the transverse colon out of the hernia sac and into the abdomen. Additionally, there was a loop of small intestine adhered to the left-sided subcostal incision, which was very carefully taken down with care not to injure the bowel wall. The liver was adhered to the right subcostal incision abdominal wall, and this was also carefully taken down. Adhesiolysis took greater than 90 minutes. Once this was complete, the fascial defect was found to be 5.5 cm in diameter and was round. Therefore, the decision was made to proceed with primary fascial closure and mesh placement. A small stab incision was made in the skin at the center of the hernia defect, and a Luke-Mariah suture passing device was used to place five interrupted sutures. Two were 2-0 PDS and three were 0 PDS, to primarily close the defect. A 15 cm diameter round Ventralight mesh with echo positioning system was then placed into the intra-abdominal cavity using the attached introducer. The balloon was inflated, and the mesh was positioned at the center of the hernia defect. An absorbable tacking device was used to tack the mesh into position. The positioning balloon was removed. Four interrupted transfascial stitches were used at the 12 o'clock, 6 o'clock, 3 o'clock, and 9 o'clock positions with 0 PDS to hold the mesh into position. Local anesthetic was infused into the fascia at each of these stitch sites. The edges of the mesh were then inspected, and additional tacks were placed to confirm that there were no spaces more than 1 cm without good apposition to the abdominal wall. Hemostasis of the intra-abdominal cavity was confirmed. The ports were removed. The patient was awakened from general anesthesia and taken to postoperative care unit in good condition. COMPLICATIONS: None. SPECIMENS: None. ESTIMATED BLOOD LOSS: 5 mL. A Modifier 22 is requested due to the presence of significant intra-abdominal adhesions from the patient's previous liver surgery requiring prolonged adhesiolysis doubling the usual length of time necessary to complete the procedure. MTDD
[2016-12-16] MEDS ORDERED: LORazepam 0.5 mg Tablet PO PRN (15:10)
[2016-12-16] MEDS ORDERED: Albuterol 2.5 mg/3 mL Inhalation Solution NEB PRN (15:10)
[2016-12-16] MEDS ORDERED: 0.9% Sodium Chloride 100 ML ONE (15:44)
[2016-12-16] MEDS: Acetaminophen IV 1,000 MG in IV Premix 1 EACH IV SCH ×2 (15:50→20:37)
--- NOTE | 2016-12-16 16:05 | NUR ---
Activity Pt up and ambulating to bathroom SBA with FWW. Asked pt to not get up by herself as she is a little light headed. Pt using call light appropriately.
[2016-12-16] MEDS: HYDROmorphone PCA 0.2 mg/mL 30 mL Inj IV PRN (16:59)
[2016-12-16] MEDS: Heparin 5,000 Unit/mL Inj SUBQ SCH (16:59)
[2016-12-17] VITALS (8 sets, daily range): BP systolic 98–110; BP diastolic 65–75; PULSE 80–96; RESP 14–18; O2SAT 95–100
[2016-12-17] MEDS: Dextrose 5% Lactated Ringer's 1,000 ML IV SCH ×2 (00:30→15:25)
[2016-12-17] MEDS: Heparin 5,000 Unit/mL Inj SUBQ SCH ×3 (00:30→17:52)
[2016-12-17] MEDS: HYDROmorphone PCA 0.2 mg/mL 30 mL Inj IV PRN (00:58)
--- NOTE | 2016-12-17 02:06 | NUR ---
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 to monitor.
[2016-12-17] MEDS: Acetaminophen IV 1,000 MG in IV Premix 1 EACH IV SCH ×3 (03:09→17:46)
[2016-12-17] MEDS: Pantoprazole 40 mg ER24 Tablet PO SCH (05:41)
--- NOTE | 2016-12-17 08:11 | PCM.PNSURG ---
Subjective Visit Information: Reason for Visit Incisional Hernia Surgery/Surgery Date Post-Op Day # Date of Admission: Hospital Day # Subjective: Stable, tolerated CLD, ambultaing, voiding, c/o pain. Vitals normal. No BM/ flatus Objective Vital Sign- Last 8 Hours Date Time Temp Pulse Resp B/P Pulse Ox O2 Delivery O2 Flow Rate FiO2 12/17/16 05:18 16 96 12/17/16 04:08 36.7 83 16 108/66 97 Nasal Cannula 1.00 Intake and Output- Last 8 Hour 12/17/16 Cumulative From/Thru 07:00 12/11/16 08:56 - 12/17/16 05:55 Intake Total 1504 ml 3512 ml Output Total 940 ml 1740 ml Balance 564 ml 1772 ml Intake Oral 520 ml 940 ml IV Total 984 ml 2572 ml Output Urine Total 940 ml 1740 ml # Voids 3 # Bowel Movements 0 0 General: Cooperative, No Acute Distress Abdomen: Soft, Appropriately tender, Non-distended Result Diagram: 12/16/16 1205 12/17/16 0625 Assessment & Plan Impression 31yof POD1 lap incisional hernia repair doing well. c/o pain. 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 Will add toradol. Repeat BMP in am. Continue home meds. Wean O2 Start FLD, ok to advance to general diet when pt feels ready. Miralax for constipation. Heparin TID d/c possibly later today vs tomorrow Amarilis Regalado MD Dec 17, 2016 08:11
[2016-12-17 08:22] LABS: Mean Corpuscular Hemoglobin 29.3 pg (27.0-35.0); Mean Corpuscular Volume 88.8 fL (81-100)
[2016-12-17] MEDS: Ketorolac 15 mg/mL Inj IVPUSH SCH ×3 (09:16→19:50)
[2016-12-17] MEDS: Ondansetron 2 mg/mL 2 mL Inj IVPUSH PRN (17:52)
--- NOTE | 2016-12-17 19:22 | NUR ---
Ambulation Pt ambulated independently with stead gait to bathroom. Visits thew bathroom frequently. Pt denies polyurin, BMs, gas, burning on urination. Care continues
[2016-12-18 00:15] VITALS: BP 106/73; PULSE 85; RESP 16; O2SAT 95
[2016-12-18] MEDS: Heparin 5,000 Unit/mL Inj SUBQ SCH (00:19)
[2016-12-18] MEDS: Ketorolac 15 mg/mL Inj IVPUSH SCH ×2 (01:51→09:25)
[2016-12-18] MEDS: Dextrose 5% Lactated Ringer's 1,000 ML IV SCH (01:52)
[2016-12-18 05:02] VITALS: BP 113/75; PULSE 91; RESP 18; O2SAT 98
--- NOTE | 2016-12-18 06:05 | NUR ---
Activity Ambulating in room without any noted issues. Encouraged to ambulate the unit to help stimulate bowels and decrease GI discomfort. States she will ambulate halls during the day time. Currently resting in bed without any complaints.
[2016-12-18] MEDS: Pantoprazole 40 mg ER24 Tablet PO SCH (06:19)
--- NOTE | 2016-12-18 08:07 | PCM.DISURG ---
Surgical Discharge Instruction Date of Service Dec 18, 2016 Dates of Hospitalization Date of Hospital Admission Providers Admitting Physician: Amarilis Regalado MD Primary Care Physician: Leonid Vogel MD Attending Physician: Amarilis Regalado MD Discharge Diagnosis Discharge Diagnosis Incisional ventral hernia Post Operative diagnosis Incisional ventral hernia Diet Discharge Diet: No restrictions (OK to start with full liquids at home and slowly advance back to a regular diet.) Activity Discharge Activity-General: No lifting >10 pounds for 4-6 weeks Dressing and Incisional Care Dressing Care: Allow Steri Stripes to fall off Hygiene: May shower Additional Instructions Discharge Instructions Wear abdominal binder for at least 2 weeks, especially when up and about. Please walk for a minimum of 10 minutes three times a day, and increase walking over time. Follow Up Plan Follow Up Plan Follow up with Dr. Regalado in 2 weeks. Call your provider for: Fever, Chills, Shortness of breath, Nausea, Vomiting, Wound redness, Warmth to touch, Discharge @ incision, pus discharge Amarilis Regalado MD Dec 18, 2016 08:07
[2016-12-18] MEDS ORDERED: ACET-171 PO (08:11)
[2016-12-18] MEDS ORDERED: POLY17PO6 PO (08:11)
[2016-12-18] MEDS ORDERED: OXYC5CAP4 PO (08:11)
--- NOTE | 2016-12-18 08:37 | PCM.DC.SUR ---
Discharge Summary Date of Service: Dec 18, 2016 Date of Hospital Admission: 12/16/2016 Date of Operation(s): 12/16/2016 Date of Discharge: 12/18/2016 Diagnosis at Time of Discharge Primary diagnosis: Ventral incarcerated incisional hernia Other diagnoses: 1. Asthma 2. GERD 3. History of treated tuberculosis 4. Anxiety/depression 5. Aspirin syndrome 6. Hypothyroidism 7. Gastroparesis 8. History of resection of a lung hepatic adenoma Problems: Operation Laparoscopic repair of incarcerated incisional ventral hernia Brief History and Physical: This is a 31-year-old woman who underwent left lateral sectionectomy one year ago at [facility] by Dr. Mike Flores via bilateral subcostal incision with a vertical extension for a large hepatic adenoma. She subsequently had wound dehiscence and infection, and required a wound VAC for several months. Ultimately this healed, but she subsequently developed an incisional hernia at the site with incarcerated transverse colon. This became increasingly painful, and she presented to the emergency department several times with pain and a bulge. At times it was reduced but it would immediately recur and in the weeks leading up to surgery it appeared incarcerated but without sign of strangulation. She underwent a repeat four phase liver CT and evaluation at [facility], and her liver surgeon did not see any imminent indication for hepatic surgery, and therefore the decision was made to proceed with hernia repair. Consultants: None Hospital Course: The patient was admitted and underwent the above-mentioned operation without complication. Postsurgically the patient was slow to mobilize, discharge was delayed an additional day for pain control issues and assistance with mobilization. By the second postsurgical day the patient was stable for discharge. Pathology: None Disposition: The patient was discharged home on her second postsurgical day. Follow-up Plan: She will follow-up in the office with Dr. Regalado in 2 weeks. Acetaminophen (Acetaminophen) 500 Mg Tablet 1,000 MG PO Q6H Albuterol HFA (Proair HFA) 8.5 Gm Hfa.aer.ad 2 PUFFS INHALATION Q4H PRN PRN PRN (Reported) Cholecalciferol (Vitamin D3) (Vitamin D) 1,000 Unit Capsule 1,000 UNIT PO DAILY (Reported) Dicyclomine (Dicyclomine) 10 Mg Capsule 10 MG PO DAILY PRN PRN For GI Cramps ( Reported) Levothyroxine (Levoxyl) 50 Mcg Tablet 50 MCG PO DAILY (Reported) Liothyronine Sodium (Cytomel) 25 Mcg Tablet 12.5 MCG PO DAILY (Reported) Lorazepam (Lorazepam) 0.5 Mg Tablet 0.5-1 MG PO TID PRN PRN For Anxiety ( Reported) Metoprolol Tartrate (Metoprolol Tartrate) 50 Mg Tablet 50 MG PO BID (Reported) Multivitamin (Multi Vitamin Daily) 1 Each Tablet 1 EACH PO DAILY (Reported) Omeprazole (Omeprazole) 40 Mg Capsule.dr 40 MG PO DAILY (Reported) Ondansetron ODT (Ondansetron ODT) 4 Mg Tab.rapdis 4 MG PO Q8 PRN PRN PRN ( Reported) Polyethylene Glycol 3350 (Miralax) 17 Gm Powd.pack 17 GM PO DAILY PRN PRN For Constipation Pramipexole Dihydrochloride (Pramipexole Dihydrochloride) 0.5 Mg Tablet 0.5 MG PO HS (Reported) Ranitidine (Ranitidine) 300 Mg Capsule 300 MG PO DAILY (Reported) Sertraline HCl (Sertraline) 100 Mg Tablet 200 MG PO DAILY (Reported) Sumatriptan (Imitrex) 100 Mg Tablet 100 MG PO PRN migraines (Reported) RPEAT AFTER 2 HR PRN Topiramate (Topiramate) 50 Mg Tablet 50 MG PO BID (Reported) oxyCODONE (oxyCODONE) 5 Mg Capsule 5-10 MG PO Q4H PRN PRN For Pain copies to: Leonid Vogel MD, Fred H PA-C Dec 18, 2016 08:37
--- NOTE | 2016-12-18 08:47 | PCM.PNSURG ---
Subjective Visit Information: Reason for Visit Incisional Hernia Surgery/Surgery Date Post-Op Day # Date of Admission: Hospital Day # Subjective: Stable overnight. Tolerating FLD. Passing gas. Ambulating. Objective Vital Sign- Last 8 Hours Date Time Temp Pulse Resp B/P Pulse Ox O2 Delivery O2 Flow Rate FiO2 12/18/16 05:02 36.9 91 18 113/75 98 Room Air Intake and Output- Last 8 Hour 12/18/16 Cumulative From/Thru 07:00 12/11/16 08:56 - 12/18/16 06:38 Intake Total 1440 ml 6842 ml Output Total 1000 ml 3365 ml Balance 440 ml 3477 ml Intake Oral 420 ml 2100 ml IV Total 1020 ml 4742 ml Output Urine Total 1000 ml 3365 ml # Voids 3 # Bowel Movements 1 General: Oriented X3, Cooperative, No Acute Distress Abdomen: Soft, Appropriately tender Result Diagram: 12/17/16 0625 12/18/16 0600 Assessment & Plan Impression POD2 lap incisional hernia repair Problems: Plan Discharge today. Advance diet at home as tolerated. Tylenol RTC until off oxycodone. F/U with me in 2-3 weeks. Amarilis Regalado MD Dec 18, 2016 08:47
[2016-12-18 09:28] VITALS: BP 116/79; PULSE 98; RESP 16; O2SAT 97
--- NOTE | 2016-12-18 15:43 | NUR ---
DC Pt leaves with mother to home. ABD binder provided is too small. Per pt she has one at home that fits that she can use. All belongings with pt. Discharge instructions per pt are all understood and in hand. Medication prescriptions in hand and given to pt. Pt taken out to care via WC by staff. Care discontinues.
== END 2016-12-18 16:00 | disposition home or self-care (01) ==
LOC: SAS 05:47 → OSC 13:04 → SAS 23:59 → OSC 12-18 11:09 → UNDOADMIN 12-18 11:09 → OSC 12-18 11:09 → SAS 12-18 16:00 → UNDODISIN 12-18 16:00
PROVIDERS: ATTEND Surgery
PROC: 0WUF4JZ Supplement Abdominal Wall with Synthetic Substitute, Percutaneous Endoscopic Approach (ICD-10-PCS; principal; 2016-12-16 08:30)
DX: K43.0 Incisional hernia with obstruction, without gangrene (principal); I10 Essential (primary) hypertension; J45.909 Unspecified asthma, uncomplicated; K21.9 Gastro-esophageal reflux disease without esophagitis; E03.9 Hypothyroidism, unspecified; F41.9 Anxiety disorder, unspecified; F32.9 Major depressive disorder, single episode, unspecified
CPT/HCPCS: 36415; 49653; 80048; 80053; 85025; 85027; 94799; C1781; J0131; J0690; J1100; J1170; J1644; J1885; J2405; J2710; J2765; J3010; J7120